=== PATIENT | female | born 1935 | race Caucasian/White ===

== ENCOUNTER 2017-11-17 09:51 | Inpatient (IN) ==
--- NOTE | 2017-11-17 10:15 | Emergency Department Note ---
Disposition Clinical Impression: Behavior disorder Dementia Qualifiers: Dementia type: unspecified type Dementia behavioral disturbance: with behavioral disturbance Qualified Code(s): F03.91 - Unspecified dementia with behavioral disturbance Urinary tract infection Qualifiers: Urinary tract infection type: site unspecified Hematuria presence: without hematuria Qualified Code(s): N39.0 - Urinary tract infection, site not specified Disposition: Admitted As Inpatient Condition: Good Referrals: Ann Doyle MD [Primary Care Provider] - Forms: ED Satisfaction Letter General Adult HPI - General Chief complaint: ED Altered Mental Status Stated complaint: Altered Time Seen by Provider: 11/17/17 10:00 Source: patient, EMS Limitations: altered mental status Nursing Notes Reviewed: Yes Vital Signs Reviewed: Yes - History of Present Illness HPI Narrative: Patient is brought in by family for evaluation of abnormal and erratic behavior. Patient did have a stay at [facility] where they state they were unable to find any specific cause. She did follow-up with [facility] neurology. They say that she has some vascular dementia likely from her diabetes and they recommended diabetic medication changes. Since the patient has been home she is having increasingly erratic behavior that is both putting herself and family with in harm's way. She will make threats that her violent. She has previously tried to get a weapon which includes both knives as well as firearms. These have been removed from the home however due to her increased erratic behavior not sleeping and breaking things around the house she was taken to her primary care physician today who found her in a catatonic state. Patient was difficult to arouse. PCP recommended coming to the emergency department for evaluation. Pain Scale: 0 - Related Data Home Medications Medication Instructions Recorded Confirmed Aspirin [Lo-Dose Aspirin EC] 81 mg PO DAILY 04/23/16 11/08/17 Donepezil [Aricept] 10 mg PO HS 04/23/16 11/08/17 Labetalol HCl 100 mg PO BID 04/23/16 11/08/17 amLODIPine [Norvasc] 5 mg PO BID 04/23/16 11/08/17 raNITIdine HCl [Zantac] 150 mg PO QPM 04/23/16 11/08/17 Sodium Bicarbonate 650 mg PO BID 08/14/16 11/08/17 HYDROcodone/Acet 5/325 mg [Esparto 1 tab PO Q8H PRN 10/02/16 11/08/17 5-325 mg] Ondansetron ODT [Zofran ODT] 4 mg SL Q8HR PRN 10/02/16 11/08/17 Insulin Glargine [Lantus] 20 unit SQ HS 11/08/17 11/08/17 risperiDONE [Risperidone] 1 mg PO DAILY 11/08/17 11/08/17 risperiDONE [Risperidone] 2 mg PO HS 11/08/17 11/08/17 Previous Rx's Medication Instructions Recorded Polyethylene Glycol 3350 [MiraLAX 1 scoop PO DAILY #510 gm 10/02/16 Powder Bulk 17.9 Oz] Allergies Allergy/AdvReac Type Severity Reaction Status Date / Time methyldopa Allergy See Verified 08/14/16 09:54 Comments acetaminophen [From Tylenol] AdvReac Diarrhea Verified 08/14/16 09:54 propoxyphene AdvReac Diarrhea Verified 08/14/16 09:54 sulfamethoxazole AdvReac Cramping Verified 08/14/16 09:54 [From Bactrim] of the Muscles trimethoprim [From Bactrim] AdvReac Cramping Verified 08/14/16 09:54 of the Muscles Review of Systems: CONSTITUTIONAL: Weakness and fatigue No weight loss, fever, chills HEENT: Eyes: No visual changes. Ears, Nose, Throat: No hearing loss, difficulty talking or unable to swallow. SKIN: No rash or itching. CARDIOVASCULAR: No chest pain, chest pressure or chest discomfort. No palpitations or edema. RESPIRATORY: No shortness of breath, cough or sputum. GASTROINTESTINAL: Decreased food intake. No anorexia, nausea, vomiting or diarrhea. No abdominal pain or blood. GENITOURINARY: No burning on urination or hematuria. NEUROLOGICAL: Loss of bowel and bladder control has been a progressive symptom. They have to remind her to urinate she will urinate and she can then urinate on command. No headache, dizziness, syncope, paralysis, ataxia, numbness or tingling in the extremities. MUSCULOSKELETAL: No muscle pain, back pain, joint pain or stiffness. Psych: Flat affect, erratic behavior, violent behavior. Past Medical History - Past Medical History Medical history: Reports: coronary artery disease, dementia, diabetes, GERD, hyperlipidemia, hypertension, myocardial infarction, renal disease, syncope, TIA , other Surgical history: Reports: appendectomy, cataract, herniorrhaphy (Umbilical), hysterectomy, knee replacement (Bilateral), other (Hemorrhoidectomy, tonsillectomy, bladder surgery) Psychiatric history: Reports: anxiety - Social History Smoking Status: Never smoker Smokeless Tobacco Status: No Alcohol use: Reports: none Drug use: Reports: none Physical Exam General: Patient resting in bed with her eyes closed. Patient has overall general decreased movement while in bed. She arouses to verbal stimulation when I enter the room. Head: Normocephalic Atraumatic Eyes: PERRL, EOMI ENT: Airway patent, no stridor Neck: supple, no meningismus Chest: Lungs clear to auscultation bilateral Cardiac: Regular rate and rhythm, +3 systolic murmur at the aortic post Abdomen: soft, nontender, nondistended; no guarding, rebound, or tenderness to percussion Musculoskeletal: Calves symmetric, nontender, no significant edema in the extremities Skin: No rash, normal skin tone Neuro: Alert and Oriented to person, place, and time; No focal deficit, CN 2-12 symmetric and intact Psych: Flat a flat affect and slowed muscle movements - General Limitations: altered mental status General appearance: alert, in no apparent distress Course - Reevaluation(s) Reevaluation #1: Patient becoming slightly agitated and will require 2 mg of IV Haldol. He only states this which she gets like before she becomes manic. - Consultations Consultation #1: Discussed with hospitalist. Patient sent for admission. I will follow-up on the UA and treat if it is positive. UA was positive patient was given ceftriaxone and a urine culture has specifically been ordered and sent. Vital Signs Temperature 97.9 F 11/17/17 09:54 Pulse Rate 69 11/17/17 09:54 Respiratory Rate 16 11/17/17 09:54 Blood Pressure 124/65 11/17/17 09:54 O2 Sat by Pulse Oximetry 100 11/17/17 09:54 Temperature 97.9 F 11/17/17 09:54 Pulse Rate 69 11/17/17 09:54 Respiratory Rate 16 11/17/17 09:54 Blood Pressure 124/65 11/17/17 09:54 O2 Sat by Pulse Oximetry 100 11/17/17 09:54 Oxygen Delivery Oxygen Delivery Room Air Medical Decision Making - Lab Data Result diagrams: 11/17/17 11:28 11/17/17 11:28 Lab Results 11/17/17 11/17/17 11/17/17 Range/Units 11:28 11:28 13:10 WBC 4.1 L (4.3-11.1) K/mcL RBC 3.95 (3.82-4.97) M/mcL Hgb 10.5 L (11.5-15.4) g/dL Hct 32.1 L (35.3-44.9) % MCV 81.3 L (83.0-100.0) fL MCH 26.6 L (28.0-33.3) pg MCHC 32.7 (31.6-35.5) g/dL RDW 13.1 (11.5-14.5) % Plt Count 174 (140-400) K/mcL MPV 9.9 (9.4-12.4) fL Immature Gran % 0.0 (0-4) % Seg Neutrophils % 56.9 % Lymphocytes % 24.6 % Monocytes % 11.0 % Eosinophils % 6.8 % Basophils % 0.7 % Neutrophils # 2.3 (1.6-8.9) K/mcL Lymphocytes # 1.0 (0.6-4.6) K/mcL Monocytes # 0.5 (0.0-1.3) K/mcL Eosinophils # 0.3 (0.0-0.6) K/mcL Basophils # 0.0 (0.0-0.2) K/mcL Sodium 139 (136-145) mEq/L Potassium 4.6 (3.5-5.1) mEq/L Chloride 111 H (98-107) mEq/L Carbon Dioxide 21 L (23-29) mEq/L BUN 35 H (8-23) mg/dL Creatinine 2.00 H (0.60-1.20) mg/dL Est GFR ( Amer) 29 L (> 60) Est GFR (Non-Af Amer) 24 L (> 60) BUN/Creatinine Ratio 18 (6-26) Glucose 179 H (70-105) mg/dL Calculated Osmolality 300 (280-300) Calcium 9.2 (8.6-10.3) mg/dL Total Bilirubin 0.4 (0.3-1.0) mg/dL Direct Bilirubin 0.1 (0.0-0.2) mg/dL Indirect Bilirubin 0.3 (0.0-1.2) mg/dL AST 18 (13-39) Units/L ALT 12 (7-52) Units/L Alkaline Phosphatase 66 (34-104) Units/L Troponin I < 0.03 (< 0.04) ng/mL Serum Total Protein 6.6 (6.4-8.9) g/dL Albumin 3.6 (3.5-5.7) g/dL Globulin 3.0 (2.4-3.5) g/dL Albumin/Globulin Ratio 1.2 (1.1-2.2) Urine Color Yellow (Yellow) Urine Clarity Clear (Clear) Urine pH 6.0 (5.0-8.0) pH Units Ur Specific [place] 1.015 (1.010-1.025) Urine Protein 100 H (Neg-Trace) mg/dL Urine Glucose (UA) 100 H (Normal) mg/dL Urine Ketones Negative (Negative) mg/dL Urine Blood Trace H (Negative) Urine Nitrite Negative (Negative) Urine Bilirubin Negative (Negative) Urine Urobilinogen Normal (Normal) mg/dL Ur Leukocyte Esterase Moderate H (Negative) Urine Microscopic RBC 0-3 (0-3) per hpf Urine Microscopic WBC 15-30 H (0-3) per hpf Ur Squamous Epith Cells Many H (None-Few) per lpf Urine Bacteria None Seen (None-Few) per hpf Hyaline Casts None Seen (None-Few) per lpf Ur Culture Indicated? NO. A (NO) Ethyl Alcohol < 10 (Less than 10) mg/dL
[2017-11-17] MEDS ORDERED: 0.9 % Sodium Chloride 500 ML IVC ONE (10:27)
[2017-11-17 11:46] LABS: Hematocrit 32.1 % (35.3-44.9); Hemoglobin 10.5 g/dL (11.5-15.4); Mean Corpuscular HGB Conc 32.7 g/dL (31.6-35.5); Mean Corpuscular Hemoglobin 26.6 pg (28.0-33.3); Mean Corpuscular Volume 81.3 fL (83.0-100.0); Mean Platelet Volume 9.9 fL (9.4-12.4); Platelet Count 174 K/mcL (140-400); Red Blood Count 3.95 M/mcL (3.82-4.97); Red Cell Distribution Width 13.1 % (11.5-14.5); Segmented Neutrophils % 56.9 %
[2017-11-17 11:47] LABS: Basophils % 0.7 %; Eosinophils # 0.3 K/mcL (0.0-0.6); Eosinophils % 6.8 %; Lymphocytes % 24.6 %; Monocytes # 0.5 K/mcL (0.0-1.3); Neutrophils # 2.3 K/mcL (1.6-8.9)
[2017-11-17 12:07] LABS: Troponin I < 0.03 ng/mL (< 0.04)
[2017-11-17 12:24] LABS: Alanine Aminotransferase 12 Units/L (7-52); Albumin 3.6 g/dL (3.5-5.7); Albumin/Globulin Ratio 1.2 (1.1-2.2); Alkaline Phosphatase 66 Units/L (34-104); Aspartate Amino Transferase 18 Units/L (13-39); BUN/Creatinine Ratio 18 (6-26); Bilirubin,Direct 0.1 mg/dL (0.0-0.2); Bilirubin,Indirect 0.3 mg/dL (0.0-1.2); Bilirubin,Total 0.4 mg/dL (0.3-1.0); Blood Urea Nitrogen 35 mg/dL (8-23); Calcium 9.2 mg/dL (8.6-10.3); Carbon Dioxide 21 mEq/L (23-29); Chloride 111 mEq/L (98-107); Ethanol < 10 mg/dL (Less than 10); Glucose 179 mg/dL (70-105); Osmolality,Calculated 300 (280-300); Potassium 4.6 mEq/L (3.5-5.1); Sodium 139 mEq/L (136-145); Total Protein 6.6 g/dL (6.4-8.9); eGFR For Non-African Americans 24 (> 60)
--- NOTE | 2017-11-17 13:05 | Electrocardiograph Report ---
[facility] Test Date: 2017-11-17 Pat Name: Tabitha Zhu Department: [id number] Room: Gender: F Utilities Operator: : [id number] Requested By: [id number] Order Number: [id number] Reading MD: Nahun Torres Measurements Intervals [place] Rate: 66 P: 35 AR: 148 QRS: -9 QRSD: 72 T: 79 QT: 411 QTc: 431 Interpretive Statements Sinus rhythm Electronically Signed On 11-17-2017 13:03:26 EDT by Nahun Torres
[2017-11-17] MEDS ORDERED: Haloperidol Lactate 5 MG/ML VIAL IVP ONE ×2 (13:22→14:37)
[2017-11-17 13:30] LABS: Bilirubin,Urine Negative (Negative); Blood,Urine Trace (Negative); Clarity,Urine Clear (Clear); Color,Urine Yellow (Yellow); Glucose,Urine (UA) 100 mg/dL (Normal); Ketones,Urine Negative (Negative); Leukocyte Esterase,Urine Moderate (Negative); Nitrite,Urine Negative (Negative); Protein,Urine 100 mg/dL (Neg-Trace); Specific Gravity,Urine 1.015 (1.010-1.025); Urobilinogen,Urine Normal (Normal)
[2017-11-17 13:33] LABS: Bacteria,Urine None Seen per hpf (None-Few); Hyaline Casts,Urine None Seen per lpf (None-Few); RBC,Urine 0-3 per hpf (0-3); Squamous Epithelial Cell,Urine Many per lpf (None-Few); WBC,Urine 15-30 per hpf (0-3)
[2017-11-17] MEDS ORDERED: cefTRIAXone 1,000 MG in Water for inj. (sterile) 20 ML 10 ML IVP STA (13:44)
[2017-11-17] MEDS ORDERED: *HR* LORazepam 2 MG/ML VIAL ONE (14:59)
[2017-11-17] MEDS ORDERED: *HR* LORazepam 2 MG/ML VIAL IVP ONE ×2 (15:00→15:09)
[2017-11-17] MEDS ORDERED: Ziprasidone injection 20 MG/ML VIAL IM ONE (15:00)
--- NOTE | 2017-11-17 16:33 | Internal Med History&Physical ---
<Tracy Dominguez M - Last Filed: 11/17/17 19:03> Date of Encounter: 11/17/17 Time of Encounter: 03:30 Internal Medicine - H&P: HPI Chief complaint: Altered Mental Status, Catatonic state Admitted From: Home History of present illness: The patient is an 82 year old female with a past medical history significant for dementia, CAD, HLD, HTN, DM, and TIA presenting to [facility] on 11/17/17 with worsening altered mental status and an episode of catatonia. HPI was supplemented by her two daughters, including her daughter Shona Cisneros who is her POA. Upon initial exam, patient was altered, alert, anxious and agitated. She was only oriented to person and her speech, while clear, was out of context. After returning from speaking with the patient's daughters, the patient had received another dose of ativan and she was no longer oriented, she was not responding to questions or commands, and her speech was garbled. Patient was being seen by her PCP as a follow-up to a neurologist visit when she suddenly became catatonic and they were not carmina to get her to respond. This prompted them to bring the patient to the ED. They said that the patient has not slept in 72 hours. In the ED, Patient received 7mg of haldol, 2 doses of ativan, and 20mg of geodon for agitation, psychosis and lizzy. UA showed protein , blood, WBC and leukocyte esterase. Cultures are pending. Patient is unable to answer any review of systems questions about possible UTI and daughter does not report her complaining of any pain or burning with urination. Patient has a history of dementia and altered mental status. In March 2016, the family began to notice the patient becoming forgetful and confused at times. She gave them control of her finances. Her mental status has been progressively worsening, family states she has not been lucid in 3-4 months. Within the last 4 weeks, however, they have noticed even more worsening of her mental status and she began to have progressively worsening violent behavior. The patient has become paranoid and has had multiple yelling outbursts and psychotic episodes including grabbing "anything and everything to use as a weapon." She has been violent toward her daughters, including slapping and hitting them and coming at them with weapons. She has also threatened to kill herself but has made no attempts. Her daughters have removed all knives, guns and other weapons from the home. Her daughters also report she has been refusing her medications at times and spitting them out. She did take them this morning. Patient saw Dr. Carmen Haddad at [facility] for possible vascular dementia. She was scheduled to have a non-contrast MRI on Nov 24. They also recommended the patient see a psychologist/psychiatrist for possible long acting anti-psychotics. The patient has an appointment with Dr. Yandy Khan on , however, they were unaware that her practice does not do long-acting anti-psychotic injections. A month ago, the patient was prescribed Risperidone 1 mg TID but they said this did not help her lizzy or dementia at all. She was then increased to 2-6mg TID last Thursday but the daughter says this also did not help. In addition, she was given zyprexa PRN for lizzy but again this did not help. Past Med Surg Social Fam HX - Past Medical History Source: obtained from family Medical history: coronary artery disease, dementia, diabetes, GERD, hyperlipidemia, hypertension, myocardial infarction, renal disease, syncope, TIA , other Additional medical history: rhynaulds Psychiatric history: anxiety - Past Surgical History Surgical History: appendectomy, cataract, herniorrhaphy (Umbilical), hysterectomy, knee replacement (Bilateral), other (Hemorrhoidectomy, tonsillectomy, bladder surgery) Additional surgical history: hemorrhoidectomy,. bladder suspension - Social History Smoking Status: Never smoker Smokeless Tobacco Status: No Alcohol use: none Drug use: none Current living situation: With Family - Family History Mother Living Status: Hx Family Cardiac Disorders: Yes Hx Family Cancer: Yes Hx Family Endocrine Disorder: Yes (diabetes) Internal Medicine - H&P: Meds Aspirin [Lo-Dose Aspirin EC] 81 mg PO DAILY 04/23/16 [History] amLODIPine [Norvasc] 5 mg PO DAILY 04/23/16 [History] Sodium Bicarbonate 650 mg PO BID PRN 08/14/16 [History] Ondansetron ODT [Zofran ODT] 4 - 8 mg SL Q8HR PRN 10/02/16 [History] Polyethylene Glycol 3350 [MiraLAX Powder Bulk 17.9 Oz] 1 scoop PO DAILY #510 gm 10/02/16 [Rx] Insulin Glargine [Lantus] 20 unit SQ HS 11/08/17 [History] risperiDONE [Risperidone] 2 mg PO TID 11/08/17 [History] Cholecalciferol (D-3) [Vitamin D] 2,000 unit PO BID 11/17/17 [History] Citalopram [CeleXA] 20 mg PO DAILY 11/17/17 [History] Diphenhydramine HCl [Diphen] 25 mg PO HS PRN 11/17/17 [History] Glimepiride [Amaryl] 1 mg PO DAILY 11/17/17 [History] HYDROcodone/Acet 7.5/325 mg [[place] 7.5-325 mg] 1 tab PO Q6H PRN 11/17/17 [ History] Isosorbide MONOnitrate (24 HR) [Imdur] 30 mg PO DAILY 11/17/17 [History] Labetalol [Trandate] 100 mg PO BID 11/17/17 [History] Melatonin 3 mg PO HS PRN 11/17/17 [History] OLANZapine [Zyprexa Zydis] 5 mg PO HS 11/17/17 [History] Quetiapine Fumarate [Seroquel] 50 - 100 mg PO HS 11/17/17 [History] 3 Allergy/AdvReac Type Severity Reaction Status Date / Time methyldopa Allergy See Verified 08/14/16 09:54 Comments acetaminophen [From Tylenol] AdvReac Diarrhea Verified 08/14/16 09:54 propoxyphene AdvReac Diarrhea Verified 08/14/16 09:54 sulfamethoxazole AdvReac Cramping Verified 08/14/16 09:54 [From Bactrim] of the Muscles trimethoprim [From Bactrim] AdvReac Cramping Verified 08/14/16 09:54 of the Muscles ROS unobtainable: due to mental status All Systems PM: A 10-system review of systems was performed with the patient's daughter and is negative for pertinent findings except as documented above in the HPI. Daughter was unable to answer most review of systems because of patient's altered mental status. - Neurological Neurological ROS: behavioral changes, confusion - Psychiatric Psychiatric: abnormal sleep pattern, behavioral changes, confusion, mood swings , paranoia, suicidal ideation - Constitutional Vitals: Temp Pulse Resp BP Pulse Ox 97.9 F 70 16 123/68 99 11/17/17 09:54 11/17/17 14:26 11/17/17 14:26 11/17/17 14:26 11/17/17 14:26 General appearance: Present: A&O X 1 (Before her last dose of ativan in the ED, patient could state her full name ), disheveled. Absent: cooperative, answers questions appropriately Exam: Exam largely unobtainable due to patient's altered mental status and non- compliance - Head Head exam: Absent: atraumatic, normal inspection, normocephalic - Expanded Head Exam Head exam expanded: Absent: Georges's sign, raccoon eyes - Eye Eye exam: Present: normal appearance, sclera anicteric. Absent: conjunctival injection, periorbital swelling - ENT ENT exam: Present: mucous membranes moist - Respiratory Respiratory exam: Present: CTAB - Cardiovascular Cardiovascular exam: Present: RRR. Absent: diastolic murmur, systolic murmur - GI/Abdominal GI/Abdominal exam: Present: normal bowel sounds, soft. Absent: firm, mass - Extremities Exam Extremities exam: Present: radial pulses palpable and symmetrical. Absent: cyanotic, pedal edema - Neurological Exam Neurological exam: Present: altered. Absent: facial droop (A&O x1 to name before ativan dose ) - Expanded Neurological Exam Patient oriented to: Present: person Speech: Present: garbled (Garbled after last ativan dose in ER) Coma Scale Verbal Response: Confused - Psychiatric Psychiatric exam: Present: agitated, manic Internal Med - H&P Results - Labs CBC & Chem 7: 11/17/17 11:28 11/17/17 11:28 Labs: Short CBC 11/17/17 Range/Units 11:28 WBC 4.1 L (4.3-11.1) K/mcL Hgb 10.5 L (11.5-15.4) g/dL Hct 32.1 L (35.3-44.9) % Plt Count 174 (140-400) K/mcL Neutrophils # 2.3 (1.6-8.9) K/mcL BMP 11/17/17 11:28 Sodium 139 Potassium 4.6 Chloride 111 H Carbon Dioxide 21 L BUN 35 H Creatinine 2.00 H Glucose 179 H Calcium 9.2 Cardiac Enzymes 11/17/17 Range/Units 11:28 Troponin I < 0.03 (< 0.04) ng/mL Liver Function 11/17/17 Range/Units 11:28 Total Bilirubin 0.4 (0.3-1.0) mg/dL Direct Bilirubin 0.1 (0.0-0.2) mg/dL AST 18 (13-39) Units/L ALT 12 (7-52) Units/L Alkaline Phosphatase 66 (34-104) Units/L Albumin 3.6 (3.5-5.7) g/dL Urine 11/17/17 Range/Units 13:10 Urine Color Yellow (Yellow) Urine Clarity Clear (Clear) Urine pH 6.0 (5.0-8.0) pH Units Ur Specific [place] 1.015 (1.010-1.025) Urine Protein 100 H (Neg-Trace) mg/dL Urine Glucose (UA) 100 H (Normal) mg/dL - Impressions ITS Impressions Chest X-Ray 11/17/17 10:20 IMPRESSION: No acute cardiopulmonary disease D/ / Elan Sanders MD / Elan Sanders MD Interpreting Provider: Elan Sanders MD Head CT 11/17/17 10:21 IMPRESSION: 1. No acute intracranial abnormality. 2. Stable global atrophy and moderate chronic microvascular ischemic changes. D/ / 11/17/2017 11:17:20 Amadeo Dahl MD / avelino Interpreting Provider: Amadeo Dahl MD - Assessment and plan (1) Behavior disturbance Current Visit: Yes Status: Acute Assessment and plan: Patient presented with worsening psychotic episodes, dementia, violent behavior toward family and threatening to hurt herself. She has not responded to outpatient treatment with risperidol and zyprexa. She was not very well controlled after 7mg of haldol, 20mg of geodon and 2 doses of ativan in the ED. She was supposed to see a psychiatrist on Dec 29 for possible long-acting antipsychotic, however, the psychiatrist she was currently scheduled with does not do long-acting antipsychotic injections at their office. - Haldol 2.5 IM Q2H (do not exceed 5mg in 2 hours) - Benadryl/Haldol/Ativan Combo - Psych consulted, Palliative care consulted, Forklift Truck Operator consulted - Ordered TSH, B12, RPR - Ordered sitter - Ordered EKG since patient has received so much Haldol to check QTc Continue home medications as followed: - Benadryl 25mg PO HS PRN - Zyprexa 5mg PO HS - Risperidone 2mg PO TID - Celexa 20 mg PO Daily - Seroquel 100 mg PO HS (2) Dementia Current Visit: Yes Status: Chronic Assessment and plan: Patient has had worsening dementia since March 2016. Within the last 3-4 months her mental status has deteriorated significantly. Within the past month, the patient has began developing violent and psychotic tendencies. She was following with Dr. Carmen Haddad at [facility] for workup for vascular dementia. She was scheduled to get non-contrast MRI on Nov 24. They also recommended that she see a psychiatrist for possible long-acting anti-psychotic since increases in Risperidol and zyprexa were not managing her symptoms. It also appears that they may have started her on Aricept during her last visit on Nov 11, but the patient has not filled this yet. Will request records for confirmation. - Request order PCP and Neurology records - Ordered TSH, B12, and RPR - Ordered non-contrast MRI of head/neck and non contrast MRA of head - Will consider neurology consult pending results of imaging studies - Sitter - Mechanical soft diet Qualifiers: Dementia type: unspecified type Dementia behavioral disturbance: with behavioral disturbance Qualified Code(s): F03.91 - Unspecified dementia with behavioral disturbance (3) Urinary tract infection Current Visit: Yes Status: Acute Assessment and plan: UA showed protein, blood, glucose, WBC and leukocyte esterase. Culture pending. Patient started on Rocephin 1g IM Q24H. Will adjust antibiotics if needed once culture and sensitivity results return. Qualifiers: Urinary tract infection type: site unspecified Hematuria presence: with hematuria Qualified Code(s): N39.0 - Urinary tract infection, site not specified (4) Acute on chronic renal failure Current Visit: No Status: Suspected Assessment and plan: Patient was just hospitalized from 11/09/17 to 11/10/17 with acute on chronic renal failure. Patient has CKD stage [address] Devi Boone. On admission her BUN was 30 and her creatinine was 2.13. By discharge her BUN and Cr improved to 25 and 1.73 respectively. Today, patient's BUN is 25 and Cr is 35 and Cr is 2.0. Concerned she may have again developed acute on chronic renal failure likely secondary to acute UTI. We are treating her with Rocephin and cultures are pending. Qualifiers: Acute renal failure type: unspecified Chronic kidney disease stage: stage 4 (severe) Qualified Code(s): N17.9 - Acute kidney failure, unspecified; N18.4 - Chronic kidney disease, stage 4 (severe) (5) Anemia Current Visit: No Status: Chronic Assessment and plan: Patient has a baseline anemia of chronic disease from her chronic kidney disease. Her current Hg is 10.5. Patient appears to be around her baseline. Will continue to monitor H&H in case anemia worsens. When she was hospitalized 11/09-11/10 she was treated for worsening anemia since her Hg was 9.9. By discharge it had improved to 11.9 without treatment. Admission Hg accuracy was questioned. Qualifiers: Anemia type: due to chronic kidney disease Chronic kidney disease stage: stage 4 (severe) Qualified Code(s): N18.4 - Chronic kidney disease, stage 4 ( severe); D63.1 - Anemia in chronic kidney disease (6) Hypertension Current Visit: Yes Status: Chronic Assessment and plan: Continuing patient's home Norvasc, Imdur and Labetalol. Qualifiers: Hypertension type: essential hypertension Qualified Code(s): I10 - Essential (primary) hypertension (7) Diabetes mellitus Current Visit: Yes Status: Chronic Assessment and plan: Patient was hyperglycemic upon admission at 179. HA1c was done when she was admitted on 11/10/17 and was 7.5. Patient takes amaryl and lantus at home. - Hypoglycemia protocol - Levemir 20U SQ HS - Humalog medium sliding scale - Glucose checks ACHS - ADA mechanically soft diet Qualifiers: Diabetes mellitus type: type 2 Diabetes mellitus jail insulin use: with terminal superintendent use Diabetes mellitus complication status: with kidney complications Diabetes mellitus complication detail: with chronic kidney disease Chronic kidney disease stage: stage 4 (severe) Qualified Code(s): E11.22 - Type 2 diabetes mellitus with diabetic chronic kidney disease; N18.4 - Chronic kidney disease, stage 4 (severe); Z79.4 - FDC (current) use of insulin (8) DVT prophylaxis Current Visit: Yes Status: Acute Assessment and plan: SQ Heparin Q12H - Time Spent With Patient Total time spent is greater than 50% in coordination of care (as documented) at patient's floor/unit and/or counseling patient: Greater than 35 minutes <Fab Trammell - Last Filed: 11/17/17 19:35> Date of Encounter: 11/17/17 Internal Medicine - H&P: HPI History of present illness: Ms. Zhu is a 82 year old female ROS unobtainable: due to mental status (Unable to obtain any information from patient.) All Systems PM: A 10-system review of systems was performed and is negative for pertinent findings except as documented above in the HPI. - Constitutional Vitals: Temp Pulse Resp BP Pulse Ox 97.9 F 70 16 128/80 99 11/17/17 09:54 11/17/17 14:26 11/17/17 17:00 11/17/17 17:00 11/17/17 14:26 Internal Med - H&P Results - Labs CBC & Chem 7: 11/17/17 11:28 11/17/17 11:28 - Assessment and plan (1) Urinary tract infection Current Visit: Yes Status: Acute Qualifiers: Urinary tract infection type: acute cystitis Hematuria presence: with hematuria Qualified Code(s): N30.01 - Acute cystitis with hematuria (2) Hypertension Current Visit: Yes Status: Chronic Qualifiers: Hypertension type: essential hypertension Qualified Code(s): I10 - Essential (primary) hypertension (3) Diabetes mellitus Current Visit: Yes Status: Chronic Qualifiers: Diabetes mellitus type: type 2 Diabetes mellitus terminal superintendent insulin use: with jail use Diabetes mellitus complication status: with kidney complications Diabetes mellitus complication detail: with chronic kidney disease Chronic kidney disease stage: stage 4 (severe) Qualified Code(s): E11.22 - Type 2 diabetes mellitus with diabetic chronic kidney disease; N18.4 - Chronic kidney disease, stage 4 (severe); Z79.4 - FDC (current) use of insulin (4) Dementia Current Visit: Yes Status: Chronic Qualifiers: Dementia type: vascular dementia Dementia behavioral disturbance: with behavioral disturbance Qualified Code(s): F01.51 - Vascular dementia with behavioral disturbance - Time Spent With Patient Total time spent is greater than 50% in coordination of care (as documented) at patient's floor/unit and/or counseling patient: - Attending Attestation The history, physical exam, and medical decision making was performed by the medical student either while I was physically present and actively involved or I personally re-performed the exam and medical decision making. I have verified the accuracy of the medical student's documentation with regards to the history, physical exam findings, and medical decision making on 11/17/17. Ms Zhu was brought to ED by her family after becoming unresponsive at PCP office. She has dementia and her behavior has been escalating. All history comes from family. Pt unable to give any information. Exam Sedated. Restless. Mucus membranes dry Heart reg with murmur Lungs diminished Abd soft No edema I/P 1. UTI 2. Acute encephalopathy 3. Dementia Further diagnoses and plan as above.
[2017-11-17] MEDS ORDERED: Melatonin 3 MG TABLET PO PRN (17:22)
[2017-11-17] MEDS ORDERED: Ondansetron ODT 4 MG TAB.RAPDIS SL PRN (17:22)
[2017-11-17] MEDS ORDERED: Dextrose Gel 15 GM/37.5 ML TUBE PO PRN (17:41)
[2017-11-17] MEDS ORDERED: Haloperidol Lactate 5 MG/ML VIAL IM PRN ×2 (17:43→19:03)
[2017-11-17] MEDS ORDERED: *HR* LORazepam 2 MG/ML VIAL IM PRN (18:59)
[2017-11-17] MEDS: *HR* LORazepam 2 MG/ML VIAL IVP PRN (20:36)
[2017-11-17] MEDS ORDERED: NON-FORMULARY MEDICATION 1 EACH EACH (Insulin Glargine [Lantus] 20 UNIT) SQ SCH (21:00)
[2017-11-17] MEDS ORDERED: Insulin DETEMIR 100 UNIT/ML X5UNITS SQ SCH (21:00)
[2017-11-17] MEDS: Cholecalciferol (D-3) 1,000 UNIT TABLET PO SCH (22:39)
[2017-11-17] MEDS: risperiDONE 1 MG TABLET PO SCH (22:39)
[2017-11-17] MEDS: OLANZapine 5 MG TAB.RAPDIS PO SCH (22:39)
[2017-11-17] MEDS: *HR* Heparin 5,000 UNIT/ML VIAL SQ SCH (22:41)
[2017-11-18 06:00] LABS: Basophils % 0.7 %; Eosinophils # 0.4 K/mcL (0.0-0.6); Eosinophils % 6.3 %; Hematocrit 33.7 % (35.3-44.9); Hemoglobin 11.1 g/dL (11.5-15.4); Immature Granulocytes % 0.7 % (0-4); Lymphocytes % 34.9 %; Mean Corpuscular HGB Conc 32.9 g/dL (31.6-35.5); Mean Corpuscular Hemoglobin 27.3 pg (28.0-33.3); Mean Corpuscular Volume 82.8 fL (83.0-100.0); Mean Platelet Volume 10.3 fL (9.4-12.4); Monocytes # 1.1 K/mcL (0.0-1.3); Monocytes % 19.3 %; Neutrophils # 2.1 K/mcL (1.6-8.9); Platelet Count 173 K/mcL (140-400); Red Blood Count 4.07 M/mcL (3.82-4.97); Red Cell Distribution Width 13.2 % (11.5-14.5); Segmented Neutrophils % 38.1 %
[2017-11-18 06:11] LABS: Calcium 9.1 mg/dL (8.6-10.3); Potassium 5.1 mEq/L (3.5-5.1)
[2017-11-18] MEDS: *HR* Heparin 5,000 UNIT/ML VIAL SQ SCH ×2 (06:32→19:15)
[2017-11-18 07:06] LABS: Platelet Estimate Normal (Normal)
[2017-11-18] MEDS ORDERED: Insulin LISPRO 300 UNITS/3 ML VIAL SQ SCH (07:30)
--- NOTE | 2017-11-18 09:12 | Internal Med Progress Note ---
<Tracy Dominguez - Last Filed: 11/18/17 16:47> Hospitalist Progress Note - Encounter Date of Encounter: 11/18/17 Time of Encounter: 08:10 - Subjective Interval History: The patient is an 82 year old female with a past medical history significant for dementia, CAD, HLD, HTN, DM, and TIA who presented to [facility] on 11/17/17 with worsening altered mental status and an episode of catatonia. Due to patient's altered status, HPI was supplemented by her two daughters, including her daughter Shona Cisneros who is her POA. Patient was being seen by her PCP as a follow-up to a neurologist visit when she suddenly became catatonic and they were not able to get her to respond. This prompted them to bring the patient to the ED. They said that the patient has not slept in 72 hours. In the ED, Patient received 7mg of haldol, 2 doses of ativan, and 20mg of geodon for agitation, psychosis and lizzy. UA showed protein, blood, WBC and leukocyte esterase. Cultures are pending. Patient was unable to answer any review of systems questions about possible UTI and daughter reported that patient has not been complaining of any pain or burning with urination. Patient has a history of dementia and altered mental status since March 2016. She has been progressively worsening. In the last month her condition has been rapidly deteriorating and she has had episodes of psychosis, violent behavior toward family and threatens to kill herself. Patient was being seen by [facility] for her dementia and possible workup of vascular dementia. This is hospitalization day number 2. The patient was seen and examined at bedside this morning. No acute events were reported overnight. Patient slept through the night. Today, patient was asleep upon exam due to the haldol she received yesterday and she would not fully wake up when prompted. Nursing reports that her sugar was 67 and she received 1 dose of oral glucose but glucose continues to be low. Patient's glucose stabilized after IV Glucose drip was started and switching her to a low-dose sliding scale. MRA/MRI of Head/Neck was limited due to motion artifact. Moderate chronic microangiopathic ischemic changes of the cerebral white matter was seen with moderate parenchymal atrophy indicating vascular dementia. [id number] focal stenosis at the origin of the left internal carotid artery could not be excluded given diminished flow related signal but could not be confirmed because of motion artifact. Palliative care and Psych should see and evaluate the patient today. - Exam Vitals: Temp Pulse Resp BP Pulse Ox 97.6 F 80 16 152/76 96 11/18/17 06:21 11/18/17 06:21 11/18/17 06:21 11/18/17 06:21 11/18/17 06:21 Exam: Physical Exam: GENERAL: Patient is a well-nourished 82 year old female who is sleeping in bed at the time of exam. She is difficult to arouse and did not wake up when prompted. Exam limited because of patient's sedated medical state. HEENT: Head is normocephalic, atraumatic, well formed. MOUTH: Mucous membranes moist. NECK: Supple, no masses, trachea midline. No JVD noted. CV: Regular rate and rhythm. Systolic murmur. PULMONARY: Breath sounds are clear and equal bilaterally. Symmetrical chest expansion. No wheeze, rales or rhonchi. GI: Abdomen is soft, nondistended, positive bowel sounds x 4 present and appropriate. No palpable masses. SKIN: Warm, dry and intact. No rashes, bruising, cyanosis. No edema is noted. NEUROLOGICAL: Patient not awake and will not wake up fully when prompted. VASCULAR/EXTREMITIES: No cyanosis, clubbing, or edema in lower extremities - Assessment and Plan (1) Behavior disturbance Current Visit: Yes Status: Acute Assessment and Plan: Patient presented with worsening psychotic episodes, dementia, violent behavior toward family and threatening to hurt herself. She has not responded to outpatient treatment with risperidol and zyprexa. She was not very well controlled after 7mg of haldol, 20mg of geodon and 2 doses of ativan in the ED. She was supposed to see a psychiatrist on Dec 29 for possible long-acting antipsychotic, however, the psychiatrist she was currently scheduled with does not do long-acting antipsychotic injections at their office. - Haldol 2.5 IM Q2H (do not exceed 5mg in 2 hours) - EKG showed normal sinus rhythm. - Ordered TSH, B12, RPR - all within normal limits - Psych consulted - Palliative care consulted - they saw and evaluated the patient. They found a company to administer long acting psych medication. Will begin this medication on . - Family is still making the decision on whether to transfer patient to a geriatric psych facility or care for her at home. Will await their decision. - Continue sitter order Continue home medications as followed: - Benadryl 25mg PO HS PRN - Zyprexa 5mg PO HS - Risperidone 2mg PO TID - Celexa 20 mg PO Daily - Seroquel 100 mg PO HS (2) Diabetes mellitus Current Visit: Yes Status: Chronic Assessment and Plan: Patient was hyperglycemic upon admission at 179. HA1c was done when she was admitted on 11/10/17 and was 7.5. Patient takes amaryl and lantus at home. Patient received her home lantus yesterday evening. This morning she experienced some hypoglycemia requiring oral glucose administration. Patient has been sleeping since yesterday when he doses of haldol took effect and has not been able to eat or drink. Patient constantly pulls at lines and so is not able to tolerate IV fluids. Will hold patient's home levemir dose and switch her to a Humalog low sliding scale TID. - Hypoglycemia protocol - Glucose checks ACHS - ADA mechanically soft diet (3) Dementia Current Visit: Yes Status: Chronic Assessment and Plan: Patient has had worsening dementia since March 2016. Within the last 3-4 months her mental status has deteriorated significantly. Within the past month, the patient has began developing violent and psychotic tendencies. She was following with Dr. Carmen Haddad at [facility] for workup for vascular dementia. She was scheduled to get non-contrast MRI on Nov 24. They also recommended that she see a psychiatrist for possible long-acting anti-psychotic since increases in Risperidol and zyprexa were not managing her symptoms. It also appears that they may have started her on Aricept during her last visit on Nov 11, but the patient has not filled this yet. - Request order PCP and Neurology records - - Ordered TSH, B12, and RPR - all within normal limits - Sitter - Mechanical soft diet - Ordered non-contrast MRI of head/neck and non contrast MRA of head - showed "moderate chronic microangiopathic ischemic changes in the cerebral white matter and moderate parenchymal atrophy." This radiographic finding along with the patient's clinical presentation do suggest a diagnosis of vascular dementia. This has been discussed with the family. Patient was already supposed to start Aricept which is indicated for vascular dementia. Will consider starting Aricept in AM and adding memantine. (4) Urinary tract infection Current Visit: Yes Status: Acute Assessment and Plan: UA showed protein, blood, glucose, WBC and leukocyte esterase. Culture still pending. Continue Rocephin 1g IM Q24H. Will adjust antibiotics if needed once culture and sensitivity results return. (5) Anemia Current Visit: No Status: Chronic Assessment and Plan: Patient has a baseline anemia of chronic disease from her chronic kidney disease. Her current Hg is 11.1. Patient appears to be around her baseline. Will continue to monitor H&H in case anemia worsens. (6) Hypertension Current Visit: Yes Status: Chronic Assessment and Plan: Continuing patient's home Norvasc, Imdur and Labetalol. (7) DVT prophylaxis Current Visit: Yes Status: Acute Assessment and Plan: SQ Heparin Q12H - Summary of Assessment and Plan Summary of Assessment and Plan: CODE: [id number] The foregoing assessment and plan have been reviewed with my resident, Dr. Alfredo, and attending physician, Dr. Trammell, who are in agreement. Please see note from my attending for any details or changes. - Time Spent with Patient Total time spent is greater than 50% in coordination of care (as documented) at patient's floor/unit and/or counseling patient: Internal Medicine: Result - Labs CBC & Chem 7: 11/18/17 05:40 11/18/17 05:40 Labs: Short CBC 11/18/17 Range/Units 05:40 WBC 5.6 (4.3-11.1) K/mcL Hgb 11.1 L (11.5-15.4) g/dL Hct 33.7 L (35.3-44.9) % Plt Count 173 (140-400) K/mcL Neutrophils # 2.1 (1.6-8.9) K/mcL BMP 11/18/17 05:40 Sodium 143 Potassium 5.1 Chloride 116 H Carbon Dioxide 19 L BUN 27 H Creatinine 1.79 H Glucose 71 Calcium 9.1 - Impressions Impressions Brain MRI 11/17/17 17:31 IMPRESSION: Limited examination degraded by significant motion artifact. No reliable evidence of acute infarct or acute intracranial process. Moderate chronic microangiopathic ischemic changes of cerebral white matter. Moderate parenchymal atrophy. MRA neck and brain image quality is significantly degraded by motion artifact without reliable evidence of acute finding. High-grade stenosis of the intracranial circulation cannot be excluded. Repeat MRA examination or correlation with CT angiogram head and neck should be considered for diagnostic vascular assessment, as directed clinically. D/ / 11/17/2017 22:21:20 Mauri britt Interpreting Provider: Mauri Little Cervical Spine MRI 11/17/17 17:31 IMPRESSION: Moderate multilevel degenerative disc disease and facet arthropathy. Multifactorial mild central spinal canal stenosis from C4-5 through C6-7 associated with degenerative grade 1 anterolisthesis without evidence of acute cord impingement. Borderline enlarged thyroid gland. D/ / 11/17/2017 22:25:01 Mauri britt Interpreting Provider: Mauri Little Head MRA 11/17/17 17:31 IMPRESSION: Limited examination degraded by significant motion artifact. No reliable evidence of acute infarct or acute intracranial process. Moderate chronic microangiopathic ischemic changes of cerebral white matter. Moderate parenchymal atrophy. MRA neck and brain image quality is significantly degraded by motion artifact without reliable evidence of acute finding. High-grade stenosis of the intracranial circulation cannot be excluded. Repeat MRA examination or correlation with CT angiogram head and neck should be considered for diagnostic vascular assessment, as directed clinically. D/ / 11/17/2017 22:21:20 Mauri britt Interpreting Provider: Mauri Little Neck MRA 11/17/17 17:31 IMPRESSION: Limited examination degraded by significant motion artifact. No reliable evidence of acute infarct or acute intracranial process. Moderate chronic microangiopathic ischemic changes of cerebral white matter. Moderate parenchymal atrophy. MRA neck and brain image quality is significantly degraded by motion artifact without reliable evidence of acute finding. High-grade stenosis of the intracranial circulation cannot be excluded. Repeat MRA examination or correlation with CT angiogram head and neck should be considered for diagnostic vascular assessment, as directed clinically. D/ / 11/17/2017 22:21:20 Mauri britt Interpreting Provider: Mauri Little Consult Discharge Plan - Plan Referrals: Ann Doyle MD [Primary Care Provider] - <Fab Trammell - Last Filed: 11/18/17 18:58> Hospitalist Progress Note - Encounter Date of Encounter: 11/18/17 - Exam Vitals: Temp Pulse Resp BP Pulse Ox 98.0 F 107 17 189/95 100 11/18/17 15:40 11/18/17 15:40 11/18/17 15:40 11/18/17 15:40 11/18/17 15:40 - Assessment and Plan (1) Urinary tract infection Current Visit: Yes Status: Acute (2) Hypertension Current Visit: Yes Status: Chronic (3) Diabetes mellitus Current Visit: Yes Status: Chronic (4) Dementia Current Visit: Yes Status: Chronic - Time Spent with Patient Total time spent is greater than 50% in coordination of care (as documented) at patient's floor/unit and/or counseling patient: Internal Medicine: Result - Labs CBC & Chem 7: 11/18/17 05:40 11/18/17 05:40 Labs: Short CBC 11/18/17 Range/Units 05:40 WBC 5.6 (4.3-11.1) K/mcL Hgb 11.1 L (11.5-15.4) g/dL Hct 33.7 L (35.3-44.9) % Plt Count 173 (140-400) K/mcL Neutrophils # 2.1 (1.6-8.9) K/mcL BMP 11/18/17 05:40 Sodium 143 Potassium 5.1 Chloride 116 H Carbon Dioxide 19 L BUN 27 H Creatinine 1.79 H Glucose 71 Calcium 9.1 - Impressions Impressions Brain MRI 11/17/17 17:31 IMPRESSION: Limited examination degraded by significant motion artifact. No reliable evidence of acute infarct or acute intracranial process. Moderate chronic microangiopathic ischemic changes of cerebral white matter. Moderate parenchymal atrophy. MRA neck and brain image quality is significantly degraded by motion artifact without reliable evidence of acute finding. High-grade stenosis of the intracranial circulation cannot be excluded. Repeat MRA examination or correlation with CT angiogram head and neck should be considered for diagnostic vascular assessment, as directed clinically. D/ / 11/17/2017 22:21:20 Mauri Little / balwinder Interpreting Provider: Mauri Little Cervical Spine MRI 11/17/17 17:31 IMPRESSION: Moderate multilevel degenerative disc disease and facet arthropathy. Multifactorial mild central spinal canal stenosis from C4-5 through C6-7 associated with degenerative grade 1 anterolisthesis without evidence of acute cord impingement. Borderline enlarged thyroid gland. D/ / 11/17/2017 22:25:01 Mauri britt Interpreting Provider: Mauri Little Head MRA 11/17/17 17:31 IMPRESSION: Limited examination degraded by significant motion artifact. No reliable evidence of acute infarct or acute intracranial process. Moderate chronic microangiopathic ischemic changes of cerebral white matter. Moderate parenchymal atrophy. MRA neck and brain image quality is significantly degraded by motion artifact without reliable evidence of acute finding. High-grade stenosis of the intracranial circulation cannot be excluded. Repeat MRA examination or correlation with CT angiogram head and neck should be considered for diagnostic vascular assessment, as directed clinically. D/ / 11/17/2017 22:21:20 Mauri britt Interpreting Provider: Mauri Little Neck MRA 11/17/17 17:31 IMPRESSION: Limited examination degraded by significant motion artifact. No reliable evidence of acute infarct or acute intracranial process. Moderate chronic microangiopathic ischemic changes of cerebral white matter. Moderate parenchymal atrophy. MRA neck and brain image quality is significantly degraded by motion artifact without reliable evidence of acute finding. High-grade stenosis of the intracranial circulation cannot be excluded. Repeat MRA examination or correlation with CT angiogram head and neck should be considered for diagnostic vascular assessment, as directed clinically. D/ / 11/17/2017 22:21:20 Mauri britt Interpreting Provider: Mauri Little - Attending Attestation The history, physical exam, and medical decision making was performed by the medical student either while I was physically present and actively involved or I personally re-performed the exam and medical decision making. I have verified the accuracy of the medical student's documentation with regards to the history, physical exam findings, and medical decision making on 11/18/17. Ms Zhu is currently admitted for dementia with behavioral disturbance and UTI. She remains moderate to high risk due to potential for worsening clinical status. Ms Zhu is sleeping this AM. No fever or chills. Unable to assess otherwise. Exam Somnolent. Restless Not tachy at this time No edema I/P 1. Vascular dementia with behavioral disturbance Further diagnoses and plan as above. <Tracy Dominguez M - Last Filed: 11/18/17 16:47> (2) Diabetes mellitus Qualifiers: Diabetes mellitus type: type 2 Diabetes mellitus terminal carman insulin use: with fci use Diabetes mellitus complication status: with kidney complications Diabetes mellitus complication detail: with chronic kidney disease Chronic kidney disease stage: stage 4 (severe) Qualified Code(s): E11.22 - Type 2 diabetes mellitus with diabetic chronic kidney disease; N18.4 - Chronic kidney disease, stage 4 (severe); Z79.4 - meterman (current) use of insulin (3) Dementia Qualifiers: Dementia type: vascular dementia Dementia behavioral disturbance: with behavioral disturbance Qualified Code(s): F01.51 - Vascular dementia with behavioral disturbance (4) Urinary tract infection Qualifiers: Urinary tract infection type: acute cystitis Hematuria presence: with hematuria Qualified Code(s): N30.01 - Acute cystitis with hematuria (5) Anemia Qualifiers: Anemia type: due to chronic kidney disease Chronic kidney disease stage: stage 4 (severe) Qualified Code(s): N18.4 - Chronic kidney disease, stage 4 ( severe); D63.1 - Anemia in chronic kidney disease (6) Hypertension Qualifiers: Hypertension type: essential hypertension Qualified Code(s): I10 - Essential (primary) hypertension <Fab Trammell - Last Filed: 11/18/17 18:58> (1) Urinary tract infection Qualifiers: Urinary tract infection type: acute cystitis Hematuria presence: with hematuria Qualified Code(s): N30.01 - Acute cystitis with hematuria (2) Hypertension Qualifiers: Hypertension type: essential hypertension Qualified Code(s): I10 - Essential (primary) hypertension (3) Diabetes mellitus Qualifiers: Diabetes mellitus type: type 2 Diabetes mellitus terminal carman insulin use: with terminal carman use Diabetes mellitus complication status: with kidney complications Diabetes mellitus complication detail: with chronic kidney disease Chronic kidney disease stage: stage 4 (severe) Qualified Code(s): E11.22 - Type 2 diabetes mellitus with diabetic chronic kidney disease; N18.4 - Chronic kidney disease, stage 4 (severe); Z79.4 - detention (current) use of insulin (4) Dementia Qualifiers: Dementia type: vascular dementia Dementia behavioral disturbance: with behavioral disturbance Qualified Code(s): F01.51 - Vascular dementia with behavioral disturbance
[2017-11-18] MEDS ORDERED: D5% in Water 1,000 ML IVC PRN (09:46)
[2017-11-18] MEDS ORDERED: Dextrose Gel 15 GM/37.5 ML TUBE PO PRN (09:46)
[2017-11-18] MEDS ORDERED: *HR* Dextrose 50 % in Water (Syg) 50 ML SYRINGE IVP PRN (09:46)
[2017-11-18] MEDS ORDERED: D5% in Water 1,000 ML IVC ONE (10:02)
[2017-11-18] MEDS ORDERED: Haloperidol Oral Conc 10 MG/5 ML UDC PO PRN (11:37)
--- NOTE | 2017-11-18 12:36 | Palliative - Consult Note ---
Date of Encounter: 11/18/17 Time of Encounter: 10:00 - Assessment and Plan (1) Behavior disorder Current Visit: Yes Status: Acute Assessment and plan: Patient having intense agitation upon arrival to ER. Geodon, Ativan, and Haldol utilized. Changed Haldol to PRN SL for increased control without injection. Worrisome for opposite effect from Ativan IM. Psych consult appreciated. (2) Urinary tract infection Current Visit: Yes Status: Acute Assessment and plan: Treatment per Primary team. Qualifiers: Urinary tract infection type: acute cystitis Hematuria presence: with hematuria Qualified Code(s): N30.01 - Acute cystitis with hematuria (3) Dementia Current Visit: Yes Status: Chronic Assessment and plan: Patient diagnosed with Vascular dementia from [facility]. Family understands progressive disorder with treatment of symptoms available. Qualifiers: Dementia type: vascular dementia Dementia behavioral disturbance: with behavioral disturbance Qualified Code(s): F01.51 - Vascular dementia with behavioral disturbance (4) Goals of care, counseling/discussion Current Visit: Yes Status: Acute Assessment and plan: Patient did not participate in goals of care discussion. Conducted intense goals of care discussion with family regarding discharge planning. Family would like to get patient to abilio-psych unit short term for medication stabilization. Interested in idea of sand caster (injection) type of anti-psychotic medication. Understand PCP may not provide sand caster injection option and may have to go to additional provider. Family wants to get patient home and care for her at home, but unable to due so with current agitation level. Having difficulty keeping patient adequately medicated. Will notify Esther BOWIE of desire for GeriPsych at [facility]. Patient's family may be interested in hospice care post abilio psych stay if additional help is needed. Contact information given for [facility] and [facility]. Discussed CODE STATUS with family. Shona ([facility]) made decision to change CODE STATUS to DNRCC, with Peyman (Brother) in agreement. Shona reported that she would notify sister Chani of desire. Spoke with Ximena at [facility]. Patient currently resides in [place], but may be moving to [place] in near future. [facility] does not cover [place]. Family desires not to change agencies. Reached out to [facility] regarding views of [facility] psych injection type medications; awaiting return phone call. Received return phone call from Lou [facility] agreeable to pay for and administered [facility] psych injections (Zyprexa and Risperdal) if started inpatient. Notified Dr. Trammell and Dr. Alfredo; agreeable. Notified patient's MPOA, desires time to consider options; requested to follow up at 4 pm once has had time to discuss with family. Palliative care to keep Dr. Alfredo and [facility] up to date of decision. Received phone call from Shona that patient's family desire to bring patient home with [facility] on Thursday. Sent message to Dr. Alfredo with update. Notified Esther BOWIE. Notified [facility] with plan for family meeting 11 am thursday. Palliative-CN HPI - Data of Consult Patient: new to practice Consult date: 11/17/17 Requesting Physician: Fab Trammell DO Primary Care Provider: Ann Doyle - Consult Narrative Palliative Care/Comfort Measures: Palliative care Reason for consult: Goals of care History of present illness: Ms. Zhu is a 82 year old female CC: Fab Trammell DO - Time Spent with Patient Time: Total time spent is greater than 50% in coordination of care (as documented) at patient's floor/unit and/or counseling patient: 5 minutes reviewing chart 50 minutes at bedside discussion with Peyman Wilde and Roselyn. 5 minutes [address] up with Dr. Alfredo and Esther BECKER Greater than 35 minutes (Coordination of care, Advanced directives, and symptom management.) Past Med Surg Social Fam HX - Past Medical History Medical history: coronary artery disease, dementia, diabetes, GERD, hyperlipidemia, hypertension, myocardial infarction, renal disease, syncope, TIA , other Additional medical history: rhynaulds Psychiatric history: anxiety - Past Surgical History Surgical History: appendectomy, cataract, herniorrhaphy (Umbilical), hysterectomy, knee replacement (Bilateral), other (Hemorrhoidectomy, tonsillectomy, bladder surgery) Additional surgical history: hemorrhoidectomy,. bladder suspension - Social History Smoking Status: Never smoker Smokeless Tobacco Status: No Alcohol use: none Drug use: none - Family History Mother Living Status: Hx Family Cardiac Disorders: Yes Hx Family Cancer: Yes Hx Family Endocrine Disorder: Yes (diabetes) Medications and Allergies Aspirin [Lo-Dose Aspirin EC] 81 mg PO DAILY 04/23/16 [History] amLODIPine [Norvasc] 5 mg PO DAILY 04/23/16 [History] Sodium Bicarbonate 650 mg PO BID PRN 08/14/16 [History] Ondansetron ODT [Zofran ODT] 4 - 8 mg SL Q8HR PRN 10/02/16 [History] Polyethylene Glycol 3350 [MiraLAX Powder Bulk 17.9 Oz] 1 scoop PO DAILY #510 gm 10/02/16 [Rx] Insulin Glargine [Lantus] 20 unit SQ HS 11/08/17 [History] risperiDONE [Risperidone] 2 mg PO TID 11/08/17 [History] Cholecalciferol (D-3) [Vitamin D] 2,000 unit PO BID 11/17/17 [History] Citalopram [CeleXA] 20 mg PO DAILY 11/17/17 [History] Diphenhydramine HCl [Diphen] 25 mg PO HS PRN 11/17/17 [History] Glimepiride [Amaryl] 1 mg PO DAILY 11/17/17 [History] HYDROcodone/Acet 7.5/325 mg [Hodges 7.5-325 mg] 1 tab PO Q6H PRN 11/17/17 [ History] Isosorbide MONOnitrate (24 HR) [Imdur] 30 mg PO DAILY 11/17/17 [History] Labetalol [Trandate] 100 mg PO BID 11/17/17 [History] Melatonin 3 mg PO HS PRN 11/17/17 [History] OLANZapine [Zyprexa Zydis] 5 mg PO HS 11/17/17 [History] Quetiapine Fumarate [Seroquel] 50 - 100 mg PO HS 11/17/17 [History] 3 Allergy/AdvReac Type Severity Reaction Status Date / Time methyldopa Allergy See Verified 08/14/16 09:54 Comments acetaminophen [From Tylenol] AdvReac Diarrhea Verified 08/14/16 09:54 propoxyphene AdvReac Diarrhea Verified 08/14/16 09:54 sulfamethoxazole AdvReac Cramping Verified 08/14/16 09:54 [From Bactrim] of the Muscles trimethoprim [From Bactrim] AdvReac Cramping Verified 08/14/16 09:54 of the Muscles ROS unobtainable: due to mental status (history obtained from patient's children.) - Constitutional Constitutional ROS PAL: frequent falls - Genitourinary Palliative ROS female: urinary incontinence - Musculoskeletal Musculoskeletal ROS IM: arthralgias, back pain - Neurological Neurological ROS: abnormal speech, behavioral changes, frequent falls, memory loss, weakness - Psychiatric Psychiatric general PM: anhedonia, anxiety, behavioral changes Palliative Care-Exam - Constitutional Vitals: Temp Pulse Resp BP Pulse Ox 97.2 F L 89 16 174/98 98 11/18/17 11:55 11/18/17 11:55 11/18/17 11:55 11/18/17 11:55 11/18/17 11:55 General appearance: Present: no acute distress - Head Head Exam: Present: normal inspection - Eye Eye exam: Present: normal appearance, conjuntiva pink. Absent: periorbital swelling, periorbital tenderness - ENT ENT exam: Present: mucous membranes moist, normal external ear exam - Expanded ENT Exam Mouth Exam: Present: drooling, normal external inspection - Neck Neck exam: Present: normal inspection - Respiratory Respiratory exam: Present: CTAB. Absent: accessory muscle use, respiratory distress, wheezes - Cardiovascular Cardiovascular exam: Present: +S1, +S2 - Expanded Cardiovascular Exam Peripheral pulses: 2+: Radial (L), Radial (R), Posterior Tibialis (L), Posterior Tibialis (R), Dorsalis Pedis (L) PM, Dorsalis Pedis (R) PM - GI/Abdominal Exam GI/Abdominal exam: Present: normal bowel sounds, soft. Absent: tenderness - Rectal Rectal exam: Present: deferred - Extremities Exam Extremities exam: Present: normal inspection. Absent: calf tenderness, pedal edema - Neurological Exam Neurological exam: Present: altered. Absent: oriented X3 - Expanded Neurological Exam Neurological exam expanded: Present: expressive aphasia, total aphasia Speech: Present: total aphasia Coma Scale Eye Opening: To Pain Coma Scale Motor Response: Withdraws to Pain Coma Scale Verbal Response: None Coma Scale Total: 7 - Psychiatric Psychiatric exam: Present: flat affect Internal Medicine - CN: Reslt - Labs CBC & Chem 7: 11/18/17 05:40 11/18/17 05:40 Labs: Short CBC 11/18/17 Range/Units 05:40 WBC 5.6 (4.3-11.1) K/mcL Hgb 11.1 L (11.5-15.4) g/dL Hct 33.7 L (35.3-44.9) % Plt Count 173 (140-400) K/mcL Neutrophils # 2.1 (1.6-8.9) K/mcL BMP 11/18/17 05:40 Sodium 143 Potassium 5.1 Chloride 116 H Carbon Dioxide 19 L BUN 27 H Creatinine 1.79 H Glucose 71 Calcium 9.1 - Impressions Impressions Brain MRI 11/17/17 17:31 IMPRESSION: Limited examination degraded by significant motion artifact. No reliable evidence of acute infarct or acute intracranial process. Moderate chronic microangiopathic ischemic changes of cerebral white matter. Moderate parenchymal atrophy. MRA neck and brain image quality is significantly degraded by motion artifact without reliable evidence of acute finding. High-grade stenosis of the intracranial circulation cannot be excluded. Repeat MRA examination or correlation with CT angiogram head and neck should be considered for diagnostic vascular assessment, as directed clinically. D/ / 11/17/2017 22:21:20 Mauri britt Interpreting Provider: Mauri Little Cervical Spine MRI 11/17/17 17:31 IMPRESSION: Moderate multilevel degenerative disc disease and facet arthropathy. Multifactorial mild central spinal canal stenosis from C4-5 through C6-7 associated with degenerative grade 1 anterolisthesis without evidence of acute cord impingement. Borderline enlarged thyroid gland. D/ / 11/17/2017 22:25:01 Mauri britt Interpreting Provider: Mauri Little Head MRA 11/17/17 17:31 IMPRESSION: Limited examination degraded by significant motion artifact. No reliable evidence of acute infarct or acute intracranial process. Moderate chronic microangiopathic ischemic changes of cerebral white matter. Moderate parenchymal atrophy. MRA neck and brain image quality is significantly degraded by motion artifact without reliable evidence of acute finding. High-grade stenosis of the intracranial circulation cannot be excluded. Repeat MRA examination or correlation with CT angiogram head and neck should be considered for diagnostic vascular assessment, as directed clinically. D/ / 11/17/2017 22:21:20 Mauri britt Interpreting Provider: Mauri Little Neck MRA 11/17/17 17:31 IMPRESSION: Limited examination degraded by significant motion artifact. No reliable evidence of acute infarct or acute intracranial process. Moderate chronic microangiopathic ischemic changes of cerebral white matter. Moderate parenchymal atrophy. MRA neck and brain image quality is significantly degraded by motion artifact without reliable evidence of acute finding. High-grade stenosis of the intracranial circulation cannot be excluded. Repeat MRA examination or correlation with CT angiogram head and neck should be considered for diagnostic vascular assessment, as directed clinically. D/ / 11/17/2017 22:21:20 Mauri Little / balwinder Interpreting Provider: Mauri Little Consult Discharge Plan - Plan Referrals: Ann Doyle MD [Primary Care Provider] - Palliative Quality Palliative Quality: Screen for Code Status: Yes, Screen for Goals of Care: Yes, Screen for Pain: Yes, If Pain Regimen Started, Initiate Bowel Regimen: NA, Screen for Nausea/Vomitting: Yes Code Status: 11/17/17 18:37 CODE [Resuscitation Status: Active] [RES] Routine Comment: Resuscitation Status: Full Code 11/18/17 11:36 DNR [Resuscitation Status: Active] [RES] Routine Comment: Resuscitation Status: DNR-Comfort Care
[2017-11-18] MEDS: risperiDONE 1 MG TABLET PO SCH ×3 (15:01→20:55)
[2017-11-18] MEDS: *HR* HYDROcodone/Acet 7.5/325 mg TABLET PO PRN ×2 (15:01→20:56)
--- NOTE | 2017-11-18 16:04 | Psychiatry Progress Note ---
Date of Encounter: 11/18/17 Time of Encounter: 16:00 Subjective Interval history: Psychiatric consultation note: 82 years old female with history of vascular dementia and behavioral disturbances, significant complex medical history. Recent deterioration with insomnia, agitation, paranoia and combativeness. Psychiatric consultation requested for medication recommendation and discharge planning. On interview patient is elderly female awake, confused, speech is relevant and disorganized, answer a few questions, she did not know the hospital but she noted that she is living in [place], was unable to tell how many children she has. She was not agitated but restless. She is oriented only to self. Review of Systems Psychiatric: Reports: confusion, memory loss Results - Vital Signs Vital Signs: Temp Pulse Resp BP Pulse Ox 98.0 F 107 17 189/95 100 11/18/17 15:40 11/18/17 15:40 11/18/17 15:40 11/18/17 15:40 11/18/17 15:40 - Labs Labs: Laboratory Results - last 24 hr 11/17/17 11/17/17 11/17/17 18:47 18:47 18:47 WBC RBC Hgb Hct MCV MCH MCHC RDW Plt Count MPV Immature Gran % Seg Neutrophils % Lymphocytes % Monocytes % Eosinophils % Basophils % Neutrophils # Lymphocytes # Monocytes # Eosinophils # Basophils # Platelet Estimate Sodium Potassium Chloride Carbon Dioxide BUN Creatinine Est GFR ( Amer) Est GFR (Non-Af Amer) BUN/Creatinine Ratio Glucose POC Glucose Calculated Osmolality Calcium Vitamin B12 1071 TSH 0.751 T.pallidum Ab Interpret Negative 11/17/17 11/18/17 11/18/17 22:54 05:40 05:40 WBC 5.6 RBC 4.07 Hgb 11.1 L Hct 33.7 L MCV 82.8 L MCH 27.3 L MCHC 32.9 RDW 13.2 Plt Count 173 MPV 10.3 Immature Gran % 0.7 Seg Neutrophils % 38.1 Lymphocytes % 34.9 Monocytes % 19.3 Eosinophils % 6.3 Basophils % 0.7 Neutrophils # 2.1 Lymphocytes # 2.0 Monocytes # 1.1 Eosinophils # 0.4 Basophils # 0.0 Platelet Estimate Normal Sodium 143 Potassium 5.1 Chloride 116 H Carbon Dioxide 19 L BUN 27 H Creatinine 1.79 H Est GFR ( Amer) 33 L Est GFR (Non-Af Amer) 27 L BUN/Creatinine Ratio 15 Glucose 71 POC Glucose 98 Calculated Osmolality 300 Calcium 9.1 Vitamin B12 TSH T.pallidum Ab Interpret - Impressions ITS Impressions Brain MRI 11/17/17 17:31 IMPRESSION: Limited examination degraded by significant motion artifact. No reliable evidence of acute infarct or acute intracranial process. Moderate chronic microangiopathic ischemic changes of cerebral white matter. Moderate parenchymal atrophy. MRA neck and brain image quality is significantly degraded by motion artifact without reliable evidence of acute finding. High-grade stenosis of the intracranial circulation cannot be excluded. Repeat MRA examination or correlation with CT angiogram head and neck should be considered for diagnostic vascular assessment, as directed clinically. D/ / 11/17/2017 22:21:20 Mauri britt Interpreting Provider: Mauri Little Cervical Spine MRI 11/17/17 17:31 IMPRESSION: Moderate multilevel degenerative disc disease and facet arthropathy. Multifactorial mild central spinal canal stenosis from C4-5 through C6-7 associated with degenerative grade 1 anterolisthesis without evidence of acute cord impingement. Borderline enlarged thyroid gland. D/ / 11/17/2017 22:25:01 Mauri britt Interpreting Provider: Mauri Little Head MRA 11/17/17 17:31 IMPRESSION: Limited examination degraded by significant motion artifact. No reliable evidence of acute infarct or acute intracranial process. Moderate chronic microangiopathic ischemic changes of cerebral white matter. Moderate parenchymal atrophy. MRA neck and brain image quality is significantly degraded by motion artifact without reliable evidence of acute finding. High-grade stenosis of the intracranial circulation cannot be excluded. Repeat MRA examination or correlation with CT angiogram head and neck should be considered for diagnostic vascular assessment, as directed clinically. D/ / 11/17/2017 22:21:20 Mauri britt Interpreting Provider: Mauri Little Neck MRA 11/17/17 17:31 IMPRESSION: Limited examination degraded by significant motion artifact. No reliable evidence of acute infarct or acute intracranial process. Moderate chronic microangiopathic ischemic changes of cerebral white matter. Moderate parenchymal atrophy. MRA neck and brain image quality is significantly degraded by motion artifact without reliable evidence of acute finding. High-grade stenosis of the intracranial circulation cannot be excluded. Repeat MRA examination or correlation with CT angiogram head and neck should be considered for diagnostic vascular assessment, as directed clinically. D/ / 11/17/2017 22:21:20 Mauri Little / balwinder Interpreting Provider: Mauri Little Assessment and Plan (1) Dementia with behavioral disturbance Current visit: Yes Status: Acute Additional Plan: 1. Patient may benefit from [facility] psych admission for evaluation and placement 2. Review of medication indicates polypharmacy. Patient is taking 3 antipsychotics olanzapine, Seroquel and Risperdal I recommend: DC olanzapine, continue Seroquel 100 mg daily at bedtime and Risperdal 2 mg twice a day. Thank you for consultation Consult Discharge Plan - Plan Referrals: Ann Doyle MD [Primary Care Provider] - Psychiatry Exam - Constitutional Vitals: Temp Pulse Resp BP Pulse Ox 98.0 F 107 17 189/95 100 11/18/17 15:40 11/18/17 15:40 11/18/17 15:40 11/18/17 15:40 11/18/17 15:40 General appearance: age & developmentally appropriate, unkempt, disheveled, bizarre, malnourished - Musculoskeletal Gait: normal Station: relaxed Strength & Tone: normal for patient - Psychiatric Patient Orientation: Yes Person Level of alertness: Sedated Behavior: anxious, restless Psychomotor activity: Slowed Eye Contact: Fleeting Contact Mood Description: Anxious, Irritable Affect description: congruent with mood, labile Speech Volume: Normal Speech pattern: slowed, disorganized, rambling Language & Vocabulary: consistent with education Thought Process: Disorganized Thought Content: No Suicidal ideation, No Homicidal ideation, No Overt delusions Perceptual Disturbances: No Auditory hallucinations, No Visual hallucinations Attention Span Ability: Capable of Focused Attention Memory Description: Immediate Impaired, Recent Impaired, Remote Impaired Patient Reliability: Not Reliable Historian Fund of knowledge: Yes abstraction ability, Yes aware of current events Intelligence Estimate: Average Judgment: Poor Insight: None
[2017-11-18] MEDS: Aspirin Enteric Coated 81 MG Tablet PO SCH (16:24)
[2017-11-18] MEDS: Isosorbide MONOnitrate (24 HR) 30 MG TAB.ER.24H PO SCH (16:26)
[2017-11-18] MEDS: amLODIPine 5 MG TABLET PO SCH (16:27)
[2017-11-18] MEDS: Cholecalciferol (D-3) 1,000 UNIT TABLET PO SCH (16:27)
[2017-11-18] MEDS: *HR* LORazepam 2 MG/ML VIAL IVP PRN ×3 (16:57→23:00)
[2017-11-18] MEDS: CefTRIAXone 1,000 MG VIAL IM SCH (17:00)
[2017-11-18] MEDS ORDERED: OLANZapine 10 MG VIAL IM ONE (18:02)
[2017-11-18] MEDS ORDERED: Haloperidol Lactate 5 MG/ML VIAL IM PRN (18:02)
[2017-11-18] MEDS: Insulin LISPRO 300 UNITS/3 ML VIAL SQ SCH ×2 (19:15→21:33)
[2017-11-18] MEDS: OLANZapine 5 MG TAB.RAPDIS PO SCH (20:55)
[2017-11-19] MEDS: *HR* Heparin 5,000 UNIT/ML VIAL SQ SCH ×2 (05:27→18:34)
--- NOTE | 2017-11-19 08:08 | Internal Med Progress Note ---
<Fab Trammell - Last Filed: 11/19/17 17:04> Hospitalist Progress Note - Encounter Date of Encounter: 11/19/17 - Exam Vitals: Temp Pulse Resp BP Pulse Ox 98.8 F 97 18 118/79 99 11/19/17 16:05 11/19/17 16:05 11/19/17 16:05 11/19/17 16:05 11/19/17 16:05 - Assessment and Plan (1) Urinary tract infection Current Visit: Yes Status: Acute (2) Hypertension Current Visit: Yes Status: Chronic (3) Diabetes mellitus Current Visit: Yes Status: Chronic (4) Dementia Current Visit: Yes Status: Chronic (5) Acute metabolic encephalopathy Current Visit: Yes Status: Ruled-out Assessment and Plan: Appears to be more related to dementia. - Time Spent with Patient Total time spent is greater than 50% in coordination of care (as documented) at patient's floor/unit and/or counseling patient: Internal Medicine: Result - Labs CBC & Chem 7: 11/19/17 08:55 11/19/17 08:55 Labs: Short CBC 11/19/17 Range/Units 08:55 WBC 7.5 (4.3-11.1) K/mcL Hgb 12.3 (11.5-15.4) g/dL Hct 37.3 (35.3-44.9) % Plt Count 180 (140-400) K/mcL Neutrophils # 2.2 (1.6-8.9) K/mcL BMP 11/19/17 08:55 Sodium 139 Potassium 5.5 H Chloride 110 H Carbon Dioxide 21 L BUN 24 H Creatinine 1.63 H Glucose 159 H Calcium 9.4 - Impressions Impressions Brain MRI 11/17/17 17:31 IMPRESSION: Limited examination degraded by significant motion artifact. No reliable evidence of acute infarct or acute intracranial process. Moderate chronic microangiopathic ischemic changes of cerebral white matter. Moderate parenchymal atrophy. MRA neck and brain image quality is significantly degraded by motion artifact without reliable evidence of acute finding. High-grade stenosis of the intracranial circulation cannot be excluded. Repeat MRA examination or correlation with CT angiogram head and neck should be considered for diagnostic vascular assessment, as directed clinically. D/ / 11/17/2017 22:21:20 Mauri Little Ivan britt Interpreting Provider: Mauri Little Cervical Spine MRI 11/17/17 17:31 IMPRESSION: Moderate multilevel degenerative disc disease and facet arthropathy. Multifactorial mild central spinal canal stenosis from C4-5 through C6-7 associated with degenerative grade 1 anterolisthesis without evidence of acute cord impingement. Borderline enlarged thyroid gland. D/ / 11/17/2017 22:25:01 Mauri britt Interpreting Provider: Mauri Little Head MRA 11/17/17 17:31 IMPRESSION: Limited examination degraded by significant motion artifact. No reliable evidence of acute infarct or acute intracranial process. Moderate chronic microangiopathic ischemic changes of cerebral white matter. Moderate parenchymal atrophy. MRA neck and brain image quality is significantly degraded by motion artifact without reliable evidence of acute finding. High-grade stenosis of the intracranial circulation cannot be excluded. Repeat MRA examination or correlation with CT angiogram head and neck should be considered for diagnostic vascular assessment, as directed clinically. D/ / 11/17/2017 22:21:20 Mauri britt Interpreting Provider: Mauri Little Neck MRA 11/17/17 17:31 IMPRESSION: Limited examination degraded by significant motion artifact. No reliable evidence of acute infarct or acute intracranial process. Moderate chronic microangiopathic ischemic changes of cerebral white matter. Moderate parenchymal atrophy. MRA neck and brain image quality is significantly degraded by motion artifact without reliable evidence of acute finding. High-grade stenosis of the intracranial circulation cannot be excluded. Repeat MRA examination or correlation with CT angiogram head and neck should be considered for diagnostic vascular assessment, as directed clinically. D/ / 11/17/2017 22:21:20 Mauri britt Interpreting Provider: Mauri Little Consult Discharge Plan - Plan Referrals: Ann Doyle MD [Primary Care Provider] - - Attending Attestation I examined this patient and my medical decision-making was reviewed with the Resident Physician on 11/19/17. I agree with the documented findings, disposition and treatment plan as described except to the extent set forth below. Ms Zhu is currently admitted for dementia and UTI. She remains moderate to high risk due to potential for worsening clinical status. Ms Zhu is sleeping at this time. No fever or chills. Adjusting medications. Exam Sleeping, restless Mucus membranes dry Heart reg with murmur Lungs diminished Abd soft I/P 1. Dementia 2. UTI - 3 days abx Further diagnoses and plan as above. <Osvaldo Alfredoey N - Last Filed: 11/19/17 22:48> Hospitalist Progress Note - Encounter Date of Encounter: 11/19/17 Time of Encounter: 08:05 - Subjective Interval History: Ms. Zhu is an 82-year old female who was admitted due to dementia with rapidly worsening behavioral symptoms. Patient received zyprexa 5mg last night, with no reported complications. Nursing staff reports a quiet night, with no significant events. Patient was seen and evaluated at the bedside today. She is sleeping soundly. Sitter is present attending to daily care needs. - Exam Vitals: Temp Pulse Resp BP Pulse Ox 97.0 F L 61 18 160/93 100 11/19/17 07:23 11/19/17 07:23 11/19/17 07:23 11/19/17 07:23 11/19/17 07:23 Exam: * General: Elderly female sleeping comfortably. She is intermittently restless but does not appear to be in acute distress. * HEENT: Atraumatic and normocephalic. * Cardiovascular: Regular rate and rhythm. S1 and S2 present. 2/6 systolic murmur present. * Respiratory: CTA bilaterally. No wheezes, rales, or rhonchi. * Gastrointestinal: Bowel sounds present x 4 quadrants. Abdomen is soft, nontender, and nondistended. * Extremities: No clubbing, cyanosis, or edema. - Assessment and Plan (1) Dementia Current Visit: Yes Status: Chronic Assessment and Plan: Patient was initiated on zyprexa 5mg yesterday evening with no reported adverse reactions. Initiated therapy with long-acting IM risperdol today. Patient is still requiring PRN ativan and haldol for agitation and restlessness. High suspicion for vascular dementia due to MRI findings and patient history. Plan to initiate therapy with aricept and memantidine tomorrow for further management. Family meeting planned for noon tomorrow to discuss enrolling patient in Hospice. (2) Urinary tract infection Current Visit: Yes Status: Acute Assessment and Plan: Day #3 of ceftriaxone for suspected UTI. Urine culture demonstrated no growth. Plan to transition to PO augmentin tomorrow in anticipation of likely discharge. (3) Hypertension Current Visit: Yes Status: Chronic Assessment and Plan: Continue home medications of norvasc, imdur, and labetalol. (4) Diabetes mellitus Current Visit: Yes Status: Chronic Assessment and Plan: Low-dose sliding scale insulin ACHS. (5) DVT prophylaxis Current Visit: Yes Status: Acute Assessment and Plan: Heparin SQ Q12H. - Time Spent with Patient Total time spent is greater than 50% in coordination of care (as documented) at patient's floor/unit and/or counseling patient: Internal Medicine: Result - Labs CBC & Chem 7: 11/19/17 08:55 11/19/17 08:55 - Impressions Impressions Brain MRI 11/17/17 17:31 IMPRESSION: Limited examination degraded by significant motion artifact. No reliable evidence of acute infarct or acute intracranial process. Moderate chronic microangiopathic ischemic changes of cerebral white matter. Moderate parenchymal atrophy. MRA neck and brain image quality is significantly degraded by motion artifact without reliable evidence of acute finding. High-grade stenosis of the intracranial circulation cannot be excluded. Repeat MRA examination or correlation with CT angiogram head and neck should be considered for diagnostic vascular assessment, as directed clinically. D/ / 11/17/2017 22:21:20 Mauri Little / balwinder Interpreting Provider: Mauri Little Cervical Spine MRI 11/17/17 17:31 IMPRESSION: Moderate multilevel degenerative disc disease and facet arthropathy. Multifactorial mild central spinal canal stenosis from C4-5 through C6-7 associated with degenerative grade 1 anterolisthesis without evidence of acute cord impingement. Borderline enlarged thyroid gland. D/ / 11/17/2017 22:25:01 Mauri Little / balwinder Interpreting Provider: Mauri Little Head MRA 11/17/17 17:31 IMPRESSION: Limited examination degraded by significant motion artifact. No reliable evidence of acute infarct or acute intracranial process. Moderate chronic microangiopathic ischemic changes of cerebral white matter. Moderate parenchymal atrophy. MRA neck and brain image quality is significantly degraded by motion artifact without reliable evidence of acute finding. High-grade stenosis of the intracranial circulation cannot be excluded. Repeat MRA examination or correlation with CT angiogram head and neck should be considered for diagnostic vascular assessment, as directed clinically. D/ / 11/17/2017 22:21:20 Mauri Little / balwinder Interpreting Provider: Mauri Little Neck MRA 11/17/17 17:31 IMPRESSION: Limited examination degraded by significant motion artifact. No reliable evidence of acute infarct or acute intracranial process. Moderate chronic microangiopathic ischemic changes of cerebral white matter. Moderate parenchymal atrophy. MRA neck and brain image quality is significantly degraded by motion artifact without reliable evidence of acute finding. High-grade stenosis of the intracranial circulation cannot be excluded. Repeat MRA examination or correlation with CT angiogram head and neck should be considered for diagnostic vascular assessment, as directed clinically. D/ / 11/17/2017 22:21:20 Mauri britt Interpreting Provider: Mauri Little <Fab Trammell - Last Filed: 11/19/17 17:04> (1) Urinary tract infection Qualifiers: Urinary tract infection type: acute cystitis Hematuria presence: with hematuria Qualified Code(s): N30.01 - Acute cystitis with hematuria (2) Hypertension Qualifiers: Hypertension type: essential hypertension Qualified Code(s): I10 - Essential (primary) hypertension (3) Diabetes mellitus Qualifiers: Diabetes mellitus type: type 2 Diabetes mellitus assisted insulin use: with assisted use Diabetes mellitus complication status: with kidney complications Diabetes mellitus complication detail: with chronic kidney disease Chronic kidney disease stage: stage 4 (severe) Qualified Code(s): E11.22 - Type 2 diabetes mellitus with diabetic chronic kidney disease; N18.4 - Chronic kidney disease, stage 4 (severe); Z79.4 - nursing home (current) use of insulin (4) Dementia Qualifiers: Dementia type: vascular dementia Dementia behavioral disturbance: with behavioral disturbance Qualified Code(s): F01.51 - Vascular dementia with behavioral disturbance <Tiffanie Alfredo - Last Filed: 11/19/17 22:48> (1) Dementia Qualifiers: Dementia type: vascular dementia Dementia behavioral disturbance: with behavioral disturbance Qualified Code(s): F01.51 - Vascular dementia with behavioral disturbance (2) Urinary tract infection Qualifiers: Urinary tract infection type: acute cystitis Hematuria presence: with hematuria Qualified Code(s): N30.01 - Acute cystitis with hematuria (3) Hypertension Qualifiers: Hypertension type: essential hypertension Qualified Code(s): I10 - Essential (primary) hypertension (4) Diabetes mellitus Qualifiers: Diabetes mellitus type: type 2 Diabetes mellitus 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
[2017-11-19] MEDS: amLODIPine 5 MG TABLET PO SCH (08:48)
[2017-11-19] MEDS: Cholecalciferol (D-3) 1,000 UNIT TABLET PO SCH (08:55)
[2017-11-19] MEDS: risperiDONE 1 MG TABLET PO SCH (08:56)
[2017-11-19] MEDS: Aspirin Enteric Coated 81 MG Tablet PO SCH (08:56)
[2017-11-19] MEDS: Insulin LISPRO 300 UNITS/3 ML VIAL SQ SCH ×4 (08:56→20:16)
[2017-11-19] MEDS: Isosorbide MONOnitrate (24 HR) 30 MG TAB.ER.24H PO SCH (08:57)
[2017-11-19 09:20] LABS: Basophils % 0.5 %; Eosinophils # 0.3 K/mcL (0.0-0.6); Eosinophils % 4.1 %; Hematocrit 37.3 % (35.3-44.9); Hemoglobin 12.3 g/dL (11.5-15.4); Immature Granulocytes % 0.4 % (0-4); Lymphocytes % 52.4 %; Mean Platelet Volume 10.2 fL (9.4-12.4); Monocytes % 13.3 %; Neutrophils # 2.2 K/mcL (1.6-8.9); Platelet Count 180 K/mcL (140-400); Red Blood Count 4.55 M/mcL (3.82-4.97); Red Cell Distribution Width 13.1 % (11.5-14.5); Segmented Neutrophils % 29.3 %
[2017-11-19 09:34] LABS: Calcium 9.4 mg/dL (8.6-10.3); Potassium 5.5 mEq/L (3.5-5.1)
--- NOTE | 2017-11-19 11:33 | Palliative Progress Note ---
Date of Encounter: 11/19/17 Time of Encounter: 11:30 - Assessment and plan (1) Agitation Current Visit: Yes Status: Acute Assessment and plan: Psych has saw patient and made recommendations for medication changes. Restless but fairly calm at this time. Currently on Seroquel/Risperidal. (2) Dementia Current Visit: Yes Status: Chronic Qualifiers: Dementia type: vascular dementia Dementia behavioral disturbance: with behavioral disturbance Qualified Code(s): F01.51 - Vascular dementia with behavioral disturbance (3) Goals of care, counseling/discussion Current Visit: Yes Status: Acute Assessment and plan: Meeting scheduled for tomorrow with [facility] and family tomorrow at 1100. No family present at the time of my visit. - Time Spent With Patient Total time spent is greater than 50% in coordination of care (as documented) at patient's floor/unit and/or counseling patient: 25 - 35 minutes - Subjective Interval history: Patient restless, confused. Cannot answer questions. Does follow one step simple commands. Continually looking for "piece of something". Cannot elaborate. No family or visitors present. Sitter at bedside. - Constitutional Vitals: Abnormal lab results MCV 82.0 fL (83.0-100.0) L 11/19/17 08:55 MCH 27.0 pg (28.0-33.3) L 11/19/17 08:55 Potassium 5.5 mEq/L (3.5-5.1) H 11/19/17 08:55 Chloride 110 mEq/L (98-107) H 11/19/17 08:55 Carbon Dioxide 21 mEq/L (23-29) L 11/19/17 08:55 BUN 24 mg/dL (8-23) H 11/19/17 08:55 Creatinine 1.63 mg/dL (0.60-1.20) H 11/19/17 08:55 Est GFR ( Amer) 36 (> 60) L 11/19/17 08:55 Est GFR (Non-Af Amer) 30 (> 60) L 11/19/17 08:55 Glucose 159 mg/dL (70-105) H 11/19/17 08:55 POC Glucose 54 mg/dL (70-99) L 11/18/17 09:33 Urine Protein 100 mg/dL (Neg-Trace) H 11/17/17 13:10 Urine Glucose (UA) 100 mg/dL (Normal) H 11/17/17 13:10 Urine Blood Trace (Negative) H 11/17/17 13:10 Ur Leukocyte Esterase Moderate (Negative) H 11/17/17 13:10 Urine Microscopic WBC 15-30 per hpf (0-3) H 11/17/17 13:10 Ur Squamous Epith Cells Many per lpf (None-Few) H 11/17/17 13:10 Ur Culture Indicated? NO. (NO) A 11/17/17 13:10 - Respiratory Respiratory exam: Present: CTAB - Cardiovascular Cardiovascular exam: Present: +S1, +S2 - GI/Abdominal GI/Abdominal exam: Present: normal bowel sounds, soft - Extremities Exam Extremities exam: Present: normal capillary refill, normal inspection - Neurological Exam Neurological exam: Present: alert Additional comments: Oriented to name only, restless. Can follow very simple one step commands. Palliative Quality Palliative Quality: Screen for Code Status: Yes, Screen for Goals of Care: Yes, Screen for Pain: Yes, If Pain Regimen Started, Initiate Bowel Regimen: NA, Screen for Nausea/Vomitting: Yes Code Status: 11/17/17 18:37 CODE [Resuscitation Status: Active] [RES] Routine Comment: Resuscitation Status: Full Code 11/18/17 11:36 DNR [Resuscitation Status: Active] [RES] Routine Comment: Resuscitation Status: DNR-Comfort Care - Labs CBC & Chem 7: 11/19/17 08:55 11/19/17 08:55 Labs: Laboratory Results - last 24 hr 11/18/17 11/18/17 11/18/17 07:32 08:47 09:33 WBC RBC Hgb Hct MCV MCH MCHC RDW Plt Count MPV Immature Gran % Seg Neutrophils % Lymphocytes % Monocytes % Eosinophils % Basophils % Neutrophils # Lymphocytes # Monocytes # Eosinophils # Basophils # Sodium Potassium Chloride Carbon Dioxide BUN Creatinine Est GFR ( Amer) Est GFR (Non-Af Amer) BUN/Creatinine Ratio Glucose POC Glucose 67 L 58 L 54 L Calculated Osmolality Calcium 11/19/17 11/19/17 08:55 08:55 WBC 7.5 RBC 4.55 Hgb 12.3 Hct 37.3 MCV 82.0 L MCH 27.0 L MCHC 33.0 RDW 13.1 Plt Count 180 MPV 10.2 Immature Gran % 0.4 Seg Neutrophils % 29.3 Lymphocytes % 52.4 Monocytes % 13.3 Eosinophils % 4.1 Basophils % 0.5 Neutrophils # 2.2 Lymphocytes # 4.0 Monocytes # 1.0 Eosinophils # 0.3 Basophils # 0.0 Sodium 139 Potassium 5.5 H Chloride 110 H Carbon Dioxide 21 L BUN 24 H Creatinine 1.63 H Est GFR ( Amer) 36 L Est GFR (Non-Af Amer) 30 L BUN/Creatinine Ratio 15 Glucose 159 H POC Glucose Calculated Osmolality 295 Calcium 9.4 - Impressions Impressions Brain MRI 11/17/17 17:31 IMPRESSION: Limited examination degraded by significant motion artifact. No reliable evidence of acute infarct or acute intracranial process. Moderate chronic microangiopathic ischemic changes of cerebral white matter. Moderate parenchymal atrophy. MRA neck and brain image quality is significantly degraded by motion artifact without reliable evidence of acute finding. High-grade stenosis of the intracranial circulation cannot be excluded. Repeat MRA examination or correlation with CT angiogram head and neck should be considered for diagnostic vascular assessment, as directed clinically. D/ / 11/17/2017 22:21:20 Mauri Little / balwinder Interpreting Provider: Mauri Little Cervical Spine MRI 11/17/17 17:31 IMPRESSION: Moderate multilevel degenerative disc disease and facet arthropathy. Multifactorial mild central spinal canal stenosis from C4-5 through C6-7 associated with degenerative grade 1 anterolisthesis without evidence of acute cord impingement. Borderline enlarged thyroid gland. D/ / 11/17/2017 22:25:01 Mauri Little / balwinder Interpreting Provider: Mauri Little Head MRA 11/17/17 17:31 IMPRESSION: Limited examination degraded by significant motion artifact. No reliable evidence of acute infarct or acute intracranial process. Moderate chronic microangiopathic ischemic changes of cerebral white matter. Moderate parenchymal atrophy. MRA neck and brain image quality is significantly degraded by motion artifact without reliable evidence of acute finding. High-grade stenosis of the intracranial circulation cannot be excluded. Repeat MRA examination or correlation with CT angiogram head and neck should be considered for diagnostic vascular assessment, as directed clinically. D/ / 11/17/2017 22:21:20 Mauri Little / balwinder Interpreting Provider: Mauri Little Neck MRA 11/17/17 17:31 IMPRESSION: Limited examination degraded by significant motion artifact. No reliable evidence of acute infarct or acute intracranial process. Moderate chronic microangiopathic ischemic changes of cerebral white matter. Moderate parenchymal atrophy. MRA neck and brain image quality is significantly degraded by motion artifact without reliable evidence of acute finding. High-grade stenosis of the intracranial circulation cannot be excluded. Repeat MRA examination or correlation with CT angiogram head and neck should be considered for diagnostic vascular assessment, as directed clinically. D/ / 11/17/2017 22:21:20 Mauri britt Interpreting Provider: Mauri Little Consult Discharge Plan - Plan Referrals: Ann Doyle MD [Primary Care Provider] -
[2017-11-19] MEDS ORDERED: RisperiDONE MICROSPHERES 25 MG/2 ML SYRINGE IM SCH ×2 (12:00→17:00)
[2017-11-19] MEDS: *HR* LORazepam 2 MG/ML VIAL IVP PRN ×2 (12:13→20:14)
[2017-11-19] MEDS ORDERED: Lidocaine -MPF 1% 5 ML AMPUL ONE (18:26)
[2017-11-19] MEDS: CefTRIAXone 1,000 MG VIAL IM SCH (18:33)
[2017-11-20] MEDS: *HR* Heparin 5,000 UNIT/ML VIAL SQ SCH ×2 (05:35→17:20)
[2017-11-20 06:17] LABS: Basophils % 0.6 %; Eosinophils # 0.2 K/mcL (0.0-0.6); Eosinophils % 4.5 %; Hematocrit 37.3 % (35.3-44.9); Hemoglobin 12.3 g/dL (11.5-15.4); Immature Granulocytes % 0.2 % (0-4); Lymphocytes # 1.3 K/mcL (0.6-4.6); Lymphocytes % 24.5 %; Mean Corpuscular Hemoglobin 26.9 pg (28.0-33.3); Mean Corpuscular Volume 81.4 fL (83.0-100.0); Mean Platelet Volume 10.1 fL (9.4-12.4); Monocytes # 0.5 K/mcL (0.0-1.3); Monocytes % 10.6 %; Neutrophils # 3.1 K/mcL (1.6-8.9); Platelet Count 183 K/mcL (140-400); Red Blood Count 4.58 M/mcL (3.82-4.97); Segmented Neutrophils % 59.6 %
[2017-11-20 07:06] LABS: Calcium 9.1 mg/dL (8.6-10.3); Potassium 4.2 mEq/L (3.5-5.1)
[2017-11-20] MEDS ORDERED: *HR* LORazepam 1 MG TABLET PO PRN (08:24)
--- NOTE | 2017-11-20 09:44 | Event Note ---
Date of Encounter: 11/20/17 Time of Encounter: 09:40 Patient sleeping quietly at present - sitter at bedside. Sitter reports pt has been much calmer - did have restless night and didn't sleep much. Meeting still planned for noon today. Will d/w [facility] at that time. D/W Dr. Alfredo this am. Hopefully be able to be discharged later today if arrangements made.
[2017-11-20] MEDS: Aspirin Enteric Coated 81 MG Tablet PO SCH (10:04)
[2017-11-20] MEDS: amLODIPine 5 MG TABLET PO SCH (10:04)
[2017-11-20] MEDS: Cholecalciferol (D-3) 1,000 UNIT TABLET PO SCH (10:04)
[2017-11-20] MEDS: Insulin LISPRO 300 UNITS/3 ML VIAL SQ SCH ×3 (10:05→17:14)
[2017-11-20] MEDS: Isosorbide MONOnitrate (24 HR) 30 MG TAB.ER.24H PO SCH (10:05)
--- NOTE | 2017-11-20 10:16 | Discharge Summary ---
<Tiffanie Alfredo N - Last Filed: 11/20/17 17:02> - NOTES TO OUTPATIENT PROVIDER Notes to Outpatient Provider: Patient was sent to the ED due to altered mental status. Patient was evaluated by psychiatry and palliative care services during admission. She was enrolled in hospice. Please see hospital course for details. Date of Encounter: 11/20/17 Time of Encounter: 10:15 - Discharge Diagnosis (1) Urinary tract infection Priority: Secondary Status: Acute Qualifiers: Urinary tract infection type: acute cystitis Hematuria presence: with hematuria Qualified Code(s): N30.01 - Acute cystitis with hematuria (2) Hypertension Priority: Secondary Status: Chronic Qualifiers: Hypertension type: essential hypertension Qualified Code(s): I10 - Essential (primary) hypertension (3) Diabetes mellitus Priority: Secondary Status: Chronic Qualifiers: Diabetes mellitus type: type 2 Diabetes mellitus fdc insulin use: with terminal supervisor use Diabetes mellitus complication status: with kidney complications Diabetes mellitus complication detail: with chronic kidney disease Chronic kidney disease stage: stage 4 (severe) Qualified Code(s): E11.22 - Type 2 diabetes mellitus with diabetic chronic kidney disease; N18.4 - Chronic kidney disease, stage 4 (severe); Z79.4 - computer terminal operator (current) use of insulin (4) Dementia Priority: Primary Status: Chronic Qualifiers: Dementia type: vascular dementia Dementia behavioral disturbance: with behavioral disturbance Qualified Code(s): F01.51 - Vascular dementia with behavioral disturbance Hospital course: The patient is an 82 year old female with a past medical history significant for dementia, CAD, HLD, HTN, DM, and TIA who presented to [facility] on 11/17/17 with worsening altered mental status and an episode of catatonia. HPI was supplemented by her two daughters, including her daughterRV who is her POA. Upon initial exam, patient was altered, alert, anxious and agitated. She was only oriented to person and her speech, while clear, was out of context. After returning from speaking with the patient's daughters, the patient had received another dose of ativan and she was very sedated. She was no longer oriented, she was not responding to questions or commands, and her speech was garbled. Patient was being seen by her PCP as a follow-up to a neurologist visit when she suddenly became catatonic and they were not carmina to get her to respond. This prompted them to bring the patient to the ED. They said that the patient has not slept in 72 hours. In the ED, Patient received 7mg of haldol, 2 doses of ativan, and 20mg of geodon for agitation, psychosis and lizzy. UA showed protein , blood, WBC and leukocyte esterase. Cultures did not grow any organisms. Patient was administered ceftriaxone 1000mg Q24H x 3 during this admission. Patient has a history of dementia and altered mental status. In March 2016, the family began to notice the patient becoming forgetful and confused at times. She gave them control of her finances. Her mental status has been progressively worsening, family states she has not been lucid in 3-4 months. Within the last 4 weeks, however, they have noticed even more worsening of her mental status and she began to have progressively worsening violent behavior. The patient has become paranoid and has had multiple yelling outbursts and psychotic episodes including grabbing "anything and everything to use as a weapon." She has been violent toward her daughters, including slapping and hitting them and coming at them with weapons. She has also threatened to kill herself but has made no attempts. Her daughters have removed all knives, guns and other weapons from the home. Her daughters also report she has been refusing her medications at times and spitting them out. Patient saw Dr. Carmen Haddad at [facility] for possible vascular dementia. She was scheduled to have a non-contrast MRI on Nov 24. They also recommended the patient see a psychologist/psychiatrist for possible long acting anti-psychotics. The patient has an appointment with Dr. Yandy Khan on , however, they were unaware that her practice does not do long-acting anti-psychotic injections. A month ago, the patient was prescribed Risperidone 1 mg TID but they said this did not help her lizzy or dementia at all. She was then increased to 2-6mg TID last Thursday but the daughter says this also did not help. In addition, she was given zyprexa PRN for lizzy but again this did not help. Psych and Palliative care were consulted. Psych recommended discontinuing Olanzapine and continuing Seroquel 100mg HS and Risperdal 2mg QD. However, patient does not reliably take her oral medications as prescribed. For this reason, we decided to switch the patient to long acting Risperidone 12.5mg IM Q2W and Zyprexa 5mg IM [id number], with haldol 2.5mg Q4H PRN agitation. We are also starting her on initial dosages of Aricept 5 mg PO HS and Memantine 5mg PO HS as indicated for vascular dementia. Recommended against use of melatonin or benadryl and provided prescription for trazadone 25mg HS PRN insomnia. Patient responded well to this medication regimen, she is less sedated and has not had any violent outbursts. She still exhibits some agitation at her baseline but it was discussed with the family that this may be her new baseline because of the progression of her disease. Patient is stable for discharge to home with home hospice care. Discharge discussed with: patient, family, nurse - Time Spent with Patient Total time spent providing and/or coordinating discharge services: - Discharge Medications Prescriptions: OLANZapine [Zyprexa] 5 mg IM QMONTH #1 vial Blood-Glucose Meter, Drum-Type [Accu-Chek] 1 each MC ONCE #1 kit Donepezil [Aricept] 5 mg PO HS #30 tablet Haloperidol [Haldol] 2.5 mg PO Q4H PRN #30 tablet PRN Reason: Agitation HYDROcodone/Acet 7.5/325 mg [Plain 7.5-325 mg] 1 tab PO Q6H PRN 3 Days #10 tablet PRN Reason: Pain Memantine [Namenda] 5 mg PO HS #30 tablet RisperiDONE MICROSPHERES [RisperDAL CONSTA] 12.5 mg IM Q2W #1 syringe traZODone [TraZODone] 25 mg PO HS PRN #10 tablet PRN Reason: Insomnia Home Medications: Aspirin [Lo-Dose Aspirin EC] 81 mg PO DAILY 04/23/16 [History] amLODIPine [Norvasc] 5 mg PO DAILY 04/23/16 [History] Sodium Bicarbonate 650 mg PO BID PRN 08/14/16 [History] Ondansetron ODT [Zofran ODT] 4 - 8 mg SL Q8HR PRN 10/02/16 [History] Polyethylene Glycol 3350 [MiraLAX Powder Bulk 17.9 Oz] 1 scoop PO DAILY #510 gm 10/02/16 [Rx] Insulin Glargine [Lantus] 20 unit SQ HS 11/08/17 [History] Cholecalciferol (D-3) [Vitamin D] 2,000 unit PO BID 11/17/17 [History] Citalopram [CeleXA] 20 mg PO DAILY 11/17/17 [History] Diphenhydramine HCl [Diphen] 25 mg PO HS PRN 11/17/17 [History] Glimepiride [Amaryl] 1 mg PO DAILY 11/17/17 [History] Isosorbide MONOnitrate (24 HR) [Imdur] 30 mg PO DAILY 11/17/17 [History] Labetalol [Trandate] 100 mg PO BID 11/17/17 [History] Blood-Glucose Meter, Drum-Type [Accu-Chek] 1 each MC ONCE #1 kit 11/20/17 [Rx] Donepezil [Aricept] 5 mg PO HS #30 tablet 11/20/17 [Rx] HYDROcodone/Acet 7.5/325 mg [Plain 7.5-325 mg] 1 tab PO Q6H PRN 3 Days #10 tablet 11/20/17 [Rx] Haloperidol [Haldol] 2.5 mg PO Q4H PRN #30 tablet 11/20/17 [Rx] Memantine [Namenda] 5 mg PO HS #30 tablet 11/20/17 [Rx] OLANZapine [Zyprexa] 5 mg IM QMONTH #1 vial 11/20/17 [Rx] RisperiDONE MICROSPHERES [RisperDAL CONSTA] 12.5 mg IM Q2W #1 syringe 11/20/17 [ Rx] traZODone [TraZODone] 25 mg PO HS PRN #10 tablet 11/20/17 [Rx] Allergies/Adverse Reactions: 3 Allergy/AdvReac Type Severity Reaction Status Date / Time methyldopa Allergy See Verified 08/14/16 09:54 Comments acetaminophen [From Tylenol] AdvReac Diarrhea Verified 08/14/16 09:54 propoxyphene AdvReac Diarrhea Verified 08/14/16 09:54 sulfamethoxazole AdvReac Cramping Verified 08/14/16 09:54 [From Bactrim] of the Muscles trimethoprim [From Bactrim] AdvReac Cramping Verified 08/14/16 09:54 of the Muscles Date of admission: 11/17/17 16:27 Primary care physician: Ann Doyle Consults: 11/17/17 17:31 Consult to Palliative Care [CONS] Routine Comment: Consulting Provider: Palliative Care [facility] Reason for Consult: Goals of care in setting of worsening dementia and behavioral changes Time Notified: 17:40 Call Completed: No Consult to Psychiatry [CONS] Routine Consulting Provider: Psychiatry [facility] Reason consult: Altered mental status Other reason and/or additional details: Dementia and behavioral disturbances - psychiatric vs. physiologic cause Time Notified: 17:39 11/17/17 18:03 Consult to Drafter Electrical [CONS] Routine Reason for SW Consult: for ecf placement Discharging clinician: Tiffanie Alfredo Anticipated date of discharge: 11/20/17 - Constitutional Vitals: Temp Pulse Resp BP Pulse Ox 97.3 F L 73 18 153/97 94 11/20/17 08:03 11/20/17 08:03 11/20/17 08:03 11/20/17 08:03 11/20/17 08:03 Exam: GENERAL: Patient is a well-nourished 82 year old female. She is sedated and asleep at the time of exam. HEENT: Head is normocephalic, atraumatic, well formed. EYES: PERRLA, MOUTH: Oropharynx clear. Mucous membranes moist. NECK: Supple, no masses, trachea midline. No JVD noted. CV: Regular rate and rhythm. Normal S1, S2 with no clicks, murmurs, gallops, or rubs. PULMONARY: Breath sounds are clear and equal bilaterally. Symmetrical chest expansion. No wheeze, rales or rhonchi. Good effort. GI: Abdomen is soft, nondistended, positive bowel sounds x 4 present and appropriate. No peritoneal signs or guarding. No palpable masses. SKIN: Warm, dry and intact. No rashes, bruising, cyanosis or non healing lesions are seen. No edema is noted. VASCULAR/EXTREMITIES: No cyanosis, clubbing, or edema in lower extremities. - Patient Status Disposition: Hospice - Home Condition: Fair Overall status at discharge: patient is progressing back to baseline - Discharge Instructions Follow Up With: Ann Doyle MD [Primary Care Provider] - Additional Instructions: Continue new medications initiated during this visit: - olanzapine (zyprexa) 5MG IM monthly - risperidone (risperdal consta) 12.5mg IM every two weeks - haloperidol (haldol) 2.5mg every 4 hours as needed for agitation - donepezil (aricept) 5mg at bedtime - memantine (nemenda) 5mg at bedtime - trazodone 25mg at bedtime as needed for insomnia Continue taking only the following home medications: - aspirin 81mg daily - amlodipine (norvasc) 5mg daily - sodium bicarbonate 650mg twice daily - zofran 4mg every 8 hours as needed - miralax 1 scoop daily - insulin glargine (lantus) 20 units at bedtime - vitamin D 2000 units twice daily - citalopram (celexa) 20mg daily - glimepiride (amaryl) 1mg daily - norco 7.5-325mg every 6 hours as needed Avoid use of melatonin for insomnia. Minimize use of benadryl if possible. Followup with PCP in 3-5 days. Follow with neurology as scheduled. Return to the emergency room if concerns arise. - Diet and Activity Diet: diabetic diet <Fab Trammell - Last Filed: 11/20/17 19:13> Date of Encounter: 11/20/17 - Discharge Diagnosis (1) Urinary tract infection Status: Acute Qualifiers: Urinary tract infection type: acute cystitis Hematuria presence: with hematuria Qualified Code(s): N30.01 - Acute cystitis with hematuria (2) Hypertension Status: Chronic Qualifiers: Hypertension type: essential hypertension Qualified Code(s): I10 - Essential (primary) hypertension (3) Diabetes mellitus Status: Chronic Qualifiers: Diabetes mellitus type: type 2 Diabetes mellitus terminal supervisor insulin use: with terminal supervisor use Diabetes mellitus complication status: with kidney complications Diabetes mellitus complication detail: with chronic kidney disease Chronic kidney disease stage: stage 4 (severe) Qualified Code(s): E11.22 - Type 2 diabetes mellitus with diabetic chronic kidney disease; N18.4 - Chronic kidney disease, stage 4 (severe); Z79.4 - computer terminal operator (current) use of insulin (4) Dementia Status: Chronic Qualifiers: Dementia type: vascular dementia Dementia behavioral disturbance: with behavioral disturbance Qualified Code(s): F01.51 - Vascular dementia with behavioral disturbance Hospital course: Ms. Marko is a 82 year old female - Time Spent with Patient Total time spent providing and/or coordinating discharge services: 29min Date of admission: 11/17/17 16:27 Primary care physician: Ann Doyle Consults: 11/17/17 17:31 Consult to Palliative Care [CONS] Routine Comment: Consulting Provider: Palliative Care [facility] Reason for Consult: Goals of care in setting of worsening dementia and behavioral changes Time Notified: 17:40 Call Completed: No Consult to Psychiatry [CONS] Routine Consulting Provider: Psychiatry G[facility] Reason consult: Altered mental status Other reason and/or additional details: Dementia and behavioral disturbances - psychiatric vs. physiologic cause Time Notified: 17:39 11/17/17 18:03 Consult to Drafter Electrical [CONS] Routine Reason for SW Consult: for ecf placement - Constitutional Vitals: Temp Pulse Resp BP Pulse Ox 97.9 F 91 16 94/56 96 11/20/17 15:10 11/20/17 15:10 11/20/17 15:10 11/20/17 15:10 11/20/17 15:10 - Attending Attestation I examined this patient and my medical decision-making was reviewed with the Resident Physician on 11/20/17. I agree with the documented findings, disposition and treatment plan as described except to the extent set forth below. Ms Zhu has been admitted for acute behavior issues due to vascular dementia. She has been seen by palliative and hospice and is being discharged with hospice to home. Meds have been adjusted Exam alert Comfortable at rest Mucus membranes dry Heart reg with murmur No wheeze Plan D/C home today with hospice
[2017-11-20] MEDS: *HR* HYDROcodone/Acet 7.5/325 mg TABLET PO PRN (10:20)
[2017-11-20] MEDS ORDERED: CefTRIAXone 1,000 MG VIAL IM ONE (14:40)
--- NOTE | 2017-11-20 15:03 | Physician Discharge Referral ---
Home Health/Hosp Referral Info Transfer to: Hospice Attending Provider: Dr. 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 For more information, call the [place] Tobacco Quit Line at 6-229-UFLW-NOW. - Activity Activity Orders: Up ad daniel - Services Needed Following services are medically necessary services: Nursing, Home Health Aide, Physical Therapy, Occupational Therapy, Med Social Work - Transfer Medications Prescriptions: OLANZapine [Zyprexa] 5 mg IM QMONTH #1 vial Blood-Glucose Meter, Drum-Type [Accu-Chek] 1 each MC ONCE #1 kit Donepezil [Aricept] 5 mg PO HS #30 tablet Haloperidol [Haldol] 2.5 mg PO Q4H PRN #30 tablet PRN Reason: Agitation HYDROcodone/Acet 7.5/325 mg [[place] 7.5-325 mg] 1 tab PO Q6H PRN 3 Days #10 tablet PRN Reason: Pain Memantine [Namenda] 5 mg PO HS #30 tablet RisperiDONE MICROSPHERES [RisperDAL CONSTA] 12.5 mg IM Q2W #1 syringe traZODone [TraZODone] 25 mg PO HS PRN #10 tablet PRN Reason: Insomnia Home Medications: Aspirin [Lo-Dose Aspirin EC] 81 mg PO DAILY 04/23/16 [History] amLODIPine [Norvasc] 5 mg PO DAILY 04/23/16 [History] Sodium Bicarbonate 650 mg PO BID PRN 08/14/16 [History] Ondansetron ODT [Zofran ODT] 4 - 8 mg SL Q8HR PRN 10/02/16 [History] Polyethylene Glycol 3350 [MiraLAX Powder Bulk 17.9 Oz] 1 scoop PO DAILY #510 gm 10/02/16 [Rx] Insulin Glargine [Lantus] 20 unit SQ HS 11/08/17 [History] Cholecalciferol (D-3) [Vitamin D] 2,000 unit PO BID 11/17/17 [History] Citalopram [CeleXA] 20 mg PO DAILY 11/17/17 [History] Diphenhydramine HCl [Diphen] 25 mg PO HS PRN 11/17/17 [History] Glimepiride [Amaryl] 1 mg PO DAILY 11/17/17 [History] Isosorbide MONOnitrate (24 HR) [Imdur] 30 mg PO DAILY 11/17/17 [History] Labetalol [Trandate] 100 mg PO BID 11/17/17 [History] Blood-Glucose Meter, Drum-Type [Accu-Chek] 1 each MC ONCE #1 kit 11/20/17 [Rx] Donepezil [Aricept] 5 mg PO HS #30 tablet 11/20/17 [Rx] HYDROcodone/Acet 7.5/325 mg [[place] 7.5-325 mg] 1 tab PO Q6H PRN 3 Days #10 tablet 11/20/17 [Rx] Haloperidol [Haldol] 2.5 mg PO Q4H PRN #30 tablet 11/20/17 [Rx] Memantine [Namenda] 5 mg PO HS #30 tablet 11/20/17 [Rx] OLANZapine [Zyprexa] 5 mg IM QMONTH #1 vial 11/20/17 [Rx] RisperiDONE MICROSPHERES [RisperDAL CONSTA] 12.5 mg IM Q2W #1 syringe 11/20/17 [ Rx] traZODone [TraZODone] 25 mg PO HS PRN #10 tablet 11/20/17 [Rx] Allergies/Adverse Reactions: 3 Allergy/AdvReac Type Severity Reaction Status Date / Time methyldopa Allergy See Verified 08/14/16 09:54 Comments acetaminophen [From Tylenol] AdvReac Diarrhea Verified 08/14/16 09:54 propoxyphene AdvReac Diarrhea Verified 08/14/16 09:54 sulfamethoxazole AdvReac Cramping Verified 08/14/16 09:54 [From Bactrim] of the Muscles trimethoprim [From Bactrim] AdvReac Cramping Verified 08/14/16 09:54 of the Muscles Certification: Further, I certify that my clinical findings support that this patient is homebound (i.e. absences from home require considerable and taxing effort and are for medical reasons or scientologist services or infrequently or short duration when for other reasons) because: Homebound Reason: Patient requires assistance of a person or device to safely leave home Attestation: My signature below is to certify that this patient is under my care and that I, or nurse practitioner, or a physician's administrative services assistant working with me, has a face-to -face encounter with this patient.
[2017-11-20 15:11] VITALS: BP 94/56
[2017-11-20] MEDS ORDERED: cefTRIAXone 1,000 MG in Water for inj. (sterile) 20 ML 10 ML IVP ONE (16:26)
--- NOTE | 2017-11-20 16:49 | Electrocardiograph Report ---
[address] [place] [address] Test Date: 2017-11-17 Pat Name: Tabitha Zhu Department: 115 Room: 3A63 Gender: F Technology Teacher: : [id number] Requested By: Tiffanie Alfredo Order Number: [id number] Reading MD: Saba Mota Measurements Intervals [place] Rate: 83 P: 33 DC: 136 QRS: 5 QRSD: 79 T: 78 QT: 395 QTc: 435 Interpretive Statements SINUS RHYTHM POSSIBLE LEFT ATRIAL ENLARGEMENT INFERIOR INFARCT OF INDETERMINATE AGE NONSPECIFIC T-WAVE ABNORMALITY Electronically Signed On 11-20-2017 16:47:57 EDT by Saba Mota
[2017-12-16] MEDS ORDERED: OLANZapine 10 MG VIAL IM ONE (14:37)
== END 2017-11-20 17:51 | disposition hospice, home (50) | DRG 299 ==
LOC: EMEROOARM 09:51 → 3ANU 09:51 → OBSVTOIN 16:27 → SUATTDRO 16:27 → 3ANU 17:12
PROVIDERS: ADMIT Internal Medicine; ATTEND Internal Medicine